=== PATIENT | male | born 1940 | race Caucasian/White ===

== ENCOUNTER → 2019-02-02 10:41 | Outpatient (CLI) | payer MEDICARE, OTHER ==
[~2019-02-02 10:41] MED LIST: ASPIRIN EC81 M1 PO; BETAPACE 120 M120 MG PO; ELIQUIS5 MG PO; HYDROCODON-ACE1 EAC7 PO; LIPITOR40 MG PO; LISINOPRIL20 MG PO; MAG-OXIDE400 MG PO; MULTI-DAY VITAM1 TAB PO; NORVASC5 MG PO; VITAMIN B COMPLEX PO
== END | disposition home or self-care (01) ==
LOC: D.NM 08:30
PROVIDERS: ATTEND Surgery
DX: K80.20 Calculus of gallbladder without cholecystitis without obstruction (principal)

== ENCOUNTER 2019-02-18 06:29 | Day surgery (SDC) | payer MEDICARE, OTHER ==
[~2019-02-18 06:29] MED LIST changes: -HYDROCODON-ACE1 EAC7 PO
[2019-02-18 06:58] LABS: BASOPHILS 0.6 % (0-2); EOSINOPHILS 2.3 % (0-7); HEMATOCRIT 41.9 % (42.0-54.0); HEMOGLOBIN 14.2 g/dL (13.5-17.5); IMMATURE GRANULOCYTES 0.2 % (0-5); LYMPHOCYTES 27.5 % (15-50); MCH 31.6 pg (26.0-34.0); MCHC 33.9 g/dL (31.0-37.0); MCV 93.1 fL (80.0-100.0); MEAN PLATELET VOLUME 10.4 fL (7.4-10.4); MONOCYTES 9.1 % (2-11); NEUTROPHILS 60.3 % (40-80); PLATELET COUNT 274 10x3/uL (130-400); RDW 14.6 % (11.5-14.5)
[2019-02-18 07:09] LABS: CALC OSMOLALITY 279 mosm/kg (275-300); CALCIUM 9.3 mg/dL (8.5-10.1); CHLORIDE - SERUM 106 mmol/L (98-107); CREATININE - SERUM 0.9 mg/dL (0.6-1.3); GLUCOSE 91 mg/dL (74-106); POTASSIUM - SERUM 4.1 mmol/L (3.5-5.1); SODIUM 140 mmol/L (136-145); UREA NITROGEN 15 mg/dL (7-18); eGFR NON AFRICAN AMERICAN 86 mL/min (90-120)
[2019-02-18 07:12] LABS: APTT 32.8 SECONDS (22.8-39.4); INR 1.25 (0.85-1.17); PROTIME 15.1 SECONDS (11.6-15.0)
[2019-02-18 09:02] VITALS: BP 119/68; BMI 28.8
[2019-02-18] MEDS ORDERED: HYDROCODON-ACE1 EAC7 PO (11:39)
--- NOTE | 2019-02-18 13:41 | NUR ---
1325 DR AT BEDSIDE TO TALK TO FAMILY 1330 INSTRUCTIONS GIVEN AND READ TO FAMILY
== END 2019-02-18 14:13 | disposition home or self-care (01) ==
LOC: D.OPS 06:29 → D.PAN 10:30 → D.OPS 10:55
PROVIDERS: Anesthesiology; ATTEND Surgery
DX: K80.10 Calculus of gallbladder with chronic cholecystitis without obstruction (principal); Z01.812 Encounter for preprocedural laboratory examination

== ENCOUNTER 2019-02-23 15:16 | Inpatient (IN) | payer MEDICARE, OTHER ==
[~2019-02-23] VITALS: Ht 175.3 cm; Wt 88.6 kg
[~2019-02-23 15:16] MED LIST changes: +HYDROCODON-ACE1 EAC7 PO
[2019-02-23 16:01] LABS: BASOPHILS 0.3 % (0-2); EOSINOPHILS 1.2 % (0-7); HEMATOCRIT 26.6 % (42.0-54.0); HEMOGLOBIN 9.2 g/dL (13.5-17.5); IMMATURE GRANULOCYTES 0.3 % (0-5); LYMPHOCYTES 21.7 % (15-50); MCH 32.1 pg (26.0-34.0); MCHC 34.6 g/dL (31.0-37.0); MCV 92.7 fL (80.0-100.0); MEAN PLATELET VOLUME 10.9 fL (7.4-10.4); MONOCYTES 13.8 % (2-11); NEUTROPHILS 62.7 % (40-80); RBC 2.87 10x6/uL (4.20-6.10); RDW 15.2 % (11.5-14.5); WBC 12.8 10x3/uL (4.8-10.8)
[2019-02-23 16:10] LABS: PLATELET COUNT 336 10x3/uL (130-400)
[2019-02-23 16:25] LABS: ANION GAP 15.6 mmol/L (8-16); CALCIUM 8.5 mg/dL (8.5-10.1); CARBON DIOXIDE 22.9 mmol/L (21.0-32.0); CREATININE - SERUM 2.5 mg/dL (0.6-1.3); POTASSIUM - SERUM 4.5 mmol/L (3.5-5.1); THYROID STIMULATING HORMONE 0.5 uIU/mL (0.36-3.74); TROPONIN-I 0.057 ng/mL (0.000-0.060)
--- NOTE | 2019-02-23 18:13 | NUR ---
RECEIVED REPORT FROM PORTER FREGOSO IN ER.
--- NOTE | 2019-02-23 18:32 | NUR ---
RECEIVED TO ROOM VIA STRETCHER.
--- NOTE | 2019-02-23 19:26 | NUR ---
RESUMING PATIENT CARE. PATIENT IS ALERT AND ORIENTED. RESTING COMFORTABLY IN BED. RESPIRATIONS ARE EVEN AND UNLABORED. DENIES NEEDS. NO S/S OF DISTRESS. NO C/O PAIN. CALL LIGHT WITHIN REACH. WILL CPOC.
--- NOTE | 2019-02-23 19:51 | NUR ---
PAGED FIREARMS MODEL MAKER TO RESTART PATIENT HOME MEDS. ORDERS GIVEN FOR 1/2 NS @ [address] العلي WOULD BE REVIEWING PATIENT HOME MEDS.
[2019-02-23 20:18] VITALS: BP 100/54
[2019-02-23 23:21] VITALS: BP 98/55; BMI 28.1
[2019-02-24 00:32] VITALS: BP 93/50
[2019-02-24 04:09] VITALS: BP 92/49
--- NOTE | 2019-02-24 07:14 | NUR ---
ROUNDING DONE WITH PATIENT BEING NPO AWAITING CARDIOLOGY CONSULT. ON HEART MONITOR SHOWING SB, HR 57. LEFT HAND PIV WITH 1/2 NS INFUSING AT 100 CC/HR. ON EP, AWAITING LAB RESULTS.
[2019-02-24 07:45] LABS: APTT 28.5 SECONDS (22.8-39.4); INR 1.46 (0.85-1.17); PROTIME 17.2 SECONDS (11.6-15.0)
[2019-02-24 07:47] LABS: ALBUMIN 2.4 g/dL (3.4-5.0); ANION GAP 11.6 mmol/L (8-16); BILIRUBIN - TOTAL 0.87 mg/dL (0.2-1.3); CALCIUM 8.2 mg/dL (8.5-10.1); CARBON DIOXIDE 24.8 mmol/L (21.0-32.0); MAGNESIUM - SERUM 1.9 mg/dL (1.8-2.4); POTASSIUM - SERUM 4.4 mmol/L (3.5-5.1); PROTEIN - SERUM 5.7 g/dL (6.4-8.2)
[2019-02-24 08:00] VITALS: BP 106/47
--- NOTE | 2019-02-24 08:15 | NUR ---
ASSSITED TO RESTROOM TO HAVE LIQUID STOOL.
[2019-02-24 08:44] LABS: BASOPHILS 0.3 % (0-2); EOSINOPHILS 1.4 % (0-7); HEMATOCRIT 25.6 % (42.0-54.0); HEMOGLOBIN 8.6 g/dL (13.5-17.5); IMMATURE GRANULOCYTES 0.3 % (0-5); LYMPHOCYTES 22.4 % (15-50); MCH 31.5 pg (26.0-34.0); MCHC 33.6 g/dL (31.0-37.0); MCV 93.8 fL (80.0-100.0); MEAN PLATELET VOLUME 10.7 fL (7.4-10.4); MONOCYTES 14.2 % (2-11); NEUTROPHILS 61.4 % (40-80); PLATELET COUNT 330 10x3/uL (130-400); RBC 2.73 10x6/uL (4.20-6.10); RDW 15.4 % (11.5-14.5); WBC 14.4 10x3/uL (4.8-10.8)
--- NOTE | 2019-02-24 10:15 | NUR ---
PATIENT HAS HAD THREE BOUTS OF DIARREHA THIS AM. NOTIFIED JESUS WILBURN APN. NEW ORDERS RECEIVED.
--- NOTE | 2019-02-24 10:20 | NUR ---
PATIENT IS INFORMED OF NEEDING STOOL AND URINE SAMPLE. STATES TO UNDERSTANDING TO NOTIFY NURSE.
--- NOTE | 2019-02-24 10:55 | NUR ---
PATIENT TO COMPLAIN OF LEFT HEEL BURNING, I DO NOT ANYTHING THAT CAN CAUSE THIS. PILLOW PLACED UNDER BILATERAL HEELS.
--- NOTE | 2019-02-24 11:26 | NUR ---
EKG DONE ORDERED AND SCANNED.
[2019-02-24 12:00] VITALS: BP 103/54
--- NOTE | 2019-02-24 12:24 | NUR ---
URINE AND STOOL SENT TO LAB ORDERED.
[2019-02-24 13:04] VITALS: BMI 28.6
--- NOTE | 2019-02-24 14:57 | NUR ---
ASSISTED PATIENT TO RESTROOM. VOIDS EASILY AND STILL WITH DIARREHA.
[2019-02-24 15:20] VITALS: Ht 175.3 cm; Wt 88.6 kg
--- NOTE | 2019-02-24 15:26 | NUR ---
I CALLED LAB AND SPOKE TO NICK AND ASKED THAT THE OCCULT BLOOD AND URINE CULTURE BE ADDED TO PREVIOUS SPECIMENS. SHE TELLS ME THAT SHE DOES NOT HAVE THE URINE. I TOLD HER THAT THEY WERE IN THE SAME BAG AND THAT NAPOLEON FROM LAB TOOK THE SPECIMENS FROM ME. SHE IS GOING TO LOOK AND CALL ME BACK IF UNABLE TO FIND THEM.
[2019-02-24 16:00] VITALS: BP 116/60
[2019-02-24 16:00] LABS: APPEARANCE CLEAR (CLEAR); BILIRUBIN NEGATIVE (NEGATIVE); COLOR YELLOW (YELLOW); GLUCOSE NEGATIVE (NEGATIVE); KETONE NEGATIVE (NEGATIVE); NITRITE NEGATIVE (NEGATIVE); PROTEIN NEGATIVE (NEGATIVE); SPECIFIC GRAVITY 1.015 (1.005-1.020); UROBILINOGEN NORMAL (NORMAL)
--- NOTE | 2019-02-24 16:07 | NUR ---
REFUSED SCD'S PATIENT IS UP AND DOWN TO RESTROOM FOR DIARREHA. LAB TO CALL AND TELL ME + FOR CDT. PLACED IN ENTERIC ISOLATION. AT BEDSIDE AND THIS IS EXPLAINED. SHE TELLS ME THAT HIS DAUGHTER IS A CARRIER OF THIS. TO RADIOLOGY VIA BED FOR CT.
--- NOTE | 2019-02-24 16:17 | NUR ---
UNABLE TO GIVE MEDS AT THIS TIME THEY ARE UNVERIFIED.
[2019-02-24 16:24] LABS: % SATURATION 9 % (15-55); IRON 23 ug/dl (35-150); TOTAL IRON BIND CAPACITY 232 ug/dl (260-445); UNSAT IRON BIND CAPACITY 209 ug/dl (150-375)
--- NOTE | 2019-02-24 16:34 | NUR ---
RETURNS FROM RADIOLOGY
--- NOTE | 2019-02-24 19:02 | NUR ---
BEDSIDE REPORT RECEIVED. NAME AND DATE PLACED ON BOARD. PT HAS 1/2 NS INFUSING AT 100 ORDERED TO LEFT HAND. 3L O2 NC. PT DENIES ANY NEEDS. NO S/S OF DISTRESS. PT BEDLOW AND CALL LIGHT IN REACH. WILL CPOC
--- NOTE | 2019-02-24 19:30 | NUR ---
PT NEEDING A UNIT OF BLOOD. BLOOD BANK CALLED AND STATED UNIT OF PRBC READY. CONSENT SIGNED AND DATED. PT VERBALIZED UNDERSTANDING AND DENIES ANY QUESTIONS OR CONCERNS. PT WILL CALL FOR ASSIST WHEN NEEDED. WILL CPOC
--- NOTE | 2019-02-24 20:15 | NUR ---
ONE UNIT OF PACKED RED BLOOD CELLS STARTED. PRE VITALS. ARE 105/54 HEART RATE 60 TEMP IS 99.3 PT IS AAO, ON 3L O2 NC. BLOOD INFUSING THROUGHT LEFT HAND 20G PIV. PT 1/2 NS STOPPED AT THIS TIME FOR BLOOD TRANSFUSION. PT WATCHING TV . ASKS ABOUT BATHROOM DURING BLOOD TRANSFUSION. PT UNDERSTANDS TO CALL FOR ASSIST. PT BEDLOW AND CALL LIGHT IN REACH. NO S/S OF DISTRESS. NO S/S OF REACTION. WILL CPOC
--- NOTE | 2019-02-24 20:28 | NUR ---
15 MINS SINCE START OF BLOOD. PT IS AAO. WATCHING TV. NO S/S OF REACTION. BP IS 97/61 HEART RATE 61 TEMP IS 99.1 PT VERBALIZED UNDERSTANDING OF S/S OF REACTION. PT WILL CALL FOR ASSIST WHEN NEEDED. NO S/S OF DISTRESS. WILL CPOC
[2019-02-24 21:16] VITALS: BP 97/58
--- NOTE | 2019-02-24 21:26 | NUR ---
PT UP TO BATHROOM. BACK INTO BED. COMPLAINS OF PAIN. NORCO GIVEN. PT PRBC STILL INFUSING. NO S/S OF DISTRESS. PT WILL CALL FOR ASSIST WHEN NEEDED. BEDLOW AND CALL LIGHT IN REACH. WILL CPOC
--- NOTE | 2019-02-24 23:18 | NUR ---
PT BLOOD IS COMPLETE. WILL START IRON INFUSION. PT DENIES ANY NEEDS. WILL CPOC
[2019-02-25 00:40] VITALS: BP 107/58
--- NOTE | 2019-02-25 01:10 | NUR ---
PT YELLING OUT INSTEAD OF USING CALL LIGHT, ASSISTED PT TO RESTROOM FOR A SMALL LOOSE BM. PT INSTRUCTED TO USE CALL LIGHT, PT VERBALIZED UNDERSTANDING. PT BACK INTO BED. FLAGYL STARTED ORDERED. PT BEDLOW AND CALL LIGHT IN REACH. WILL CPCO
--- NOTE | 2019-02-25 03:36 | NUR ---
PT USED CALL LIGHT TO LET NURSE KNOW NEED TO HAVE BM. PT HAD A LARGE LOOSE BM. ASSISTED BACK TO BED. PT DENIES ANY OTHER NEEDS. 3L O2 NC. 1/2 NC INFUSING ORDERED. PT WILL CALL FOR ASSIST WHEN NEEDED. WILL CPOC
[2019-02-25 05:16] LABS: ANION GAP 13.4 mmol/L (8-16); CALCIUM 8.2 mg/dL (8.5-10.1); CARBON DIOXIDE 23.9 mmol/L (21.0-32.0); CREATININE - SERUM 1.5 mg/dL (0.6-1.3); POTASSIUM - SERUM 4.3 mmol/L (3.5-5.1)
[2019-02-25 05:26] LABS: BASOPHILS 0.3 % (0-2); EOSINOPHILS 0.9 % (0-7); HEMATOCRIT 29.8 % (42.0-54.0); HEMOGLOBIN 10.1 g/dL (13.5-17.5); IMMATURE GRANULOCYTES 0.4 % (0-5); LYMPHOCYTES 17.5 % (15-50); MCH 31.3 pg (26.0-34.0); MCHC 33.9 g/dL (31.0-37.0); MCV 92.3 fL (80.0-100.0); MEAN PLATELET VOLUME 10.7 fL (7.4-10.4); MONOCYTES 15.1 % (2-11); NEUTROPHILS 65.8 % (40-80); PLATELET COUNT 358 10x3/uL (130-400); RBC 3.23 10x6/uL (4.20-6.10); RDW 15.6 % (11.5-14.5); WBC 15.5 10x3/uL (4.8-10.8)
[2019-02-25 05:38] VITALS: BP 128/65
--- NOTE | 2019-02-25 05:52 | NUR ---
PT CALLED TO HAVE ANOTHER BM. LOOSE. PT BACK INTO BED. 1/2 NS INFUSING ORDERED. BEDLOW AND CALL LIGHT IN REACH. MORNING PROTONIX GIVEN. PT WILL CALL FOR ASSIST WHEN NEEDED. WILL CPOC
[2019-02-25 08:00] VITALS: BP 125/73
--- NOTE | 2019-02-25 08:01 | NUR ---
RUNDING DONE WITH PATIENT BEING IN ENTERIC ISOLATION FOR C. DIFF. ON HEART MONITOR SHOWING SR W OCC PVC, HR 64. ON 3L PER NC. LEFT HAND PIV SEEN WITH 1/2 NS INFUSING AT 100 CC/HR. ON EP, K+ IS 4.3. LAP CHOL SITES ARE SEEN WITH STERI STRIPS.
[2019-02-25 11:00] VITALS: BP 115/76
--- NOTE | 2019-02-25 12:42 | NUR ---
ASSSITED TO RESTROOM AGAIN FOR DIARREHA. DENIES ANY FURTHER NEEDS.
--- NOTE | 2019-02-25 13:08 | NUR ---
DR CATALAN HERE TO SEE PATIENT.
--- NOTE | 2019-02-25 13:43 | NUR ---
THERAPHY IN ROOM FOR CONSULT. PATIENT REFUSES TO GET UP FOR HER.
--- NOTE | 2019-02-25 14:15 | NUR ---
REHAB PRESCREENING CONSULT RECIEVED AND THE CHART HAS BEEN REVIEWED. HE REFUSED TO BE EVALUATED BY PT AND HAS A SURGERY CONSULT PENDING FOR A PERITONEAL HEMATOMA. REHAB WILL FOLLOW HIM TO SEE IF HE IS WILLING TO PARTICIPATE IN THERAPY. FLORES Woodard RN CLINICAL LIAISON, REHAB
--- NOTE | 2019-02-25 15:15 | NUR ---
PATIENT TO REFUSE BATH AND LINEN CHANGE AT THIS TIME.
--- NOTE | 2019-02-25 17:31 | NUR ---
PATIENT DOES NOT WANT TO EAT SUPPER.
--- NOTE | 2019-02-25 19:10 | NUR ---
PT CALLING FOR RESTROOM. ASSISTED TO AND FROM RESTROOM. FLAGYL FINISHING INFUSING. PT HAS NO S/S OF DISTRESS. AAO. PLACED NAME AND DATE ON BOARD. PT WILL CALL FOR ASSIST WHEN NEEDED. WILL CPOC
--- NOTE | 2019-02-25 19:20 | NUR ---
PT CALLING AGAIN FOR RESTROOM. ASSIST TO AND FROM RESTROOM. PT HAD ANOTHER LOOSE LIQUID BM. PT STATES IT IS ONLY A LITTLE BETTER THAN YESTURDAY. BUT HAPPY THAT THERE IS SOME IMPROVEMENT. PROVIDED HAND WORKERS' COMPENSATION MEDIATOR. PT FLUIDS INFUSING ORDERED. BEDLOW AND CALL LIGHT IN REACH. PT WILL CALL FOR ASSIST WHEN NEEDED. WILL CPOC
--- NOTE | 2019-02-25 20:40 | NUR ---
IRON INFUSING AND NIGHT MEDICATIONS GIVEN. PT HAS NO S/S OF DISTRESS. PT WILL CALL FOR ASSIST WHEN NEEDED. WILL CPOC
[2019-02-25 21:27] VITALS: BP 122/68
[2019-02-25 23:26] VITALS: BP 119/66
--- NOTE | 2019-02-26 00:09 | NUR ---
PT HAD AN ACCIDENT IN THE BED BECAUSE NURSE WAS IN ANOTHER ROOM. PT UPSET REGARDING SITUATION. CLEANED PT AND ASSISTED TO RESTROOM WHERE PT HAD ANOTHER BM LOOSE AND LIQUID. PT NOW LAYING IN BED. PT DENIES ANY OTHER NEEDS. WILL CPCO
--- NOTE | 2019-02-26 02:06 | NUR ---
LR BOLUS GIVEN ORDERED.
--- NOTE | 2019-02-26 02:07 | NUR ---
PT CALLED FOR RESTROOM. NURSE ASSISTED PT TO RESTROOM AND PT PULLED EMERGENCY LIGHT WHEN DONE. ONCE PT GOT TO BED AND NURSE WAS ASSISTING LEGS INTO BED PT YELLED LOUDLY AND SAID OH NO I HAD AN ACCIDENT. ASSISTED PT BACK TO RESTROOM AND ASSISTED WITH CLEANING. PT THAN ASSISTED BACK TO BED. STARTED LR BOLUS NOW THAT IRON AND FLAGYL ARE COMPLETE. PT BACK INTO BED. 3L O2 NC. PT HAS NO S/S OF DISTRESS. PT WILL CALL FOR ASSIST WHEN NEEDED. WILL CPOC
--- NOTE | 2019-02-26 02:37 | NUR ---
PT CALLED FOR RESTROOM AGAIN. ASSISTED TO RESTROOM AND THEN BACK TO BED.
--- NOTE | 2019-02-26 04:16 | NUR ---
PT CALLED FOR RESTROOM. PT ASSISTED TO RESTROOM AND BACK TO BED. PT WILL CALL FOR ASSIST. WHEN NEEDED. WILL CPOC
--- NOTE | 2019-02-26 05:21 | NUR ---
PT VOMITED ON THE FLOOR AND HAD A BM AT THE SAME TIME. BM STILL LIQUID/LOOSE. VOMIT HAD REDNESS IN IT. ZOFRAN GIVEN FOR NAUSEA. PT SITTING ON SIDE OF BED. CLEANED PT AND BED. WILL CPOC
[2019-02-26 05:32] VITALS: BP 129/73
[2019-02-26 05:56] LABS: CALCIUM 8.6 mg/dL (8.5-10.1); CARBON DIOXIDE 25.1 mmol/L (21.0-32.0); CHLORIDE - SERUM 109 mmol/L (98-107); GLUCOSE 108 mg/dL (74-106); POTASSIUM - SERUM 4.9 mmol/L (3.5-5.1); SODIUM 144 mmol/L (136-145); eGFR NON AFRICAN AMERICAN 86 mL/min (90-120)
[2019-02-26 06:02] LABS: CALC OSMOLALITY 298 mosm/kg (275-300); CREATININE - SERUM 0.9 mg/dL (0.6-1.3); UREA NITROGEN 44 mg/dL (7-18)
[2019-02-26 06:23] LABS: BASOPHILS 0.2 % (0-2); EOSINOPHILS 0.5 % (0-7); HEMATOCRIT 34.2 % (42.0-54.0); HEMOGLOBIN 11.3 g/dL (13.5-17.5); IMMATURE GRANULOCYTES 0.5 % (0-5); LYMPHOCYTES 12.1 % (15-50); MCH 30.8 pg (26.0-34.0); MCV 93.2 fL (80.0-100.0); MEAN PLATELET VOLUME 11.1 fL (7.4-10.4); MONOCYTES 13.5 % (2-11); NEUTROPHILS 73.2 % (40-80); PLATELET COUNT 324 10x3/uL (130-400); RBC 3.67 10x6/uL (4.20-6.10); RDW 15.5 % (11.5-14.5); WBC 17.5 10x3/uL (4.8-10.8)
--- NOTE | 2019-02-26 08:15 | NUR ---
PT ARRIVED TO ME TRANSFER FROM ANOTHER ROOM ON FLOOR. PT IS A&O SITTING UP IN BED NAUSEATED AND FEELS LIKE HE IS GOING TO VOMIT. PT HAS PRN BRENDA I WILL PROVIDE HIM WITH. PT VOICED THANKS. PT DENIES WANTING TO EAT ANYTHING OR TAKE ANY OF HIS MEDICATIONS BECAUSE HE IS SCARED HE WILL VOMIT. WILL REVIEW ALL ORDERS AND CHART AND CPOC. CL IN REACH, BED IN LOWEST, SIDE RAILS X2 WILL CTM.
--- NOTE | 2019-02-26 08:59 | MORECARE ---
CASE MANAGEMENT DISCHARGE SUMMARY PATIENT: JESSA YOO UNIT: [id number] ADM DATE: 02/23/19 AGE: 79 : 38 SEX: M ROOM/BED: D.2101 AUTHOR: MK NOEL PHYSICIAN: REFERRING PHYSICIAN: OPHELIA العلي MD DATE OF SERVICE: 02/26/19 Discharge Plan Patient Name: [facility]SA [facility]OO [facility] [facility] 1940 Planned Disposition: Home Anticipated Discharge Date: 02/28/19 Discharge Date: Expected LOS: 5 Initial Reviewer: [email or web address] Initial Review Date: 02/23/2019 Generated: 02/26/19 9:59 am Patient Name: JESSA YOO Page [phone] at 0859 All edits/amendments must be made on the electronic document DICTATION DATE: 02/26/19858 GEMOLOGIST: CHRISTOPHER 02/26/1961 RPT#: [id number] DC DATE: STATUS: ADM IN [facility] [address] [place] [address] END OF REPORT
--- NOTE | 2019-02-26 09:13 | MORECARE ---
CASE MANAGEMENT DISCHARGE SUMMARY PATIENT: JESSA YOO UNIT: [id number] ADM DATE: 02/23/19 AGE: 79 : 38 SEX: M ROOM/BED: D.2101 AUTHOR: MK NOEL PHYSICIAN: REFERRING PHYSICIAN: OPHELIA العلي MD DATE OF SERVICE: 02/26/19 Discharge Plan Patient Name: [facility]ESSA YOO [facility] [facility] 1940 Planned Disposition: Home Anticipated Discharge Date: 02/28/19 Discharge Date: Expected LOS: 5 Initial Reviewer: [email or web address] Initial Review Date: 02/23/2019 Generated: 02/26/19 10:12 am Last DP export: 02/26/19 7:59 am Patient Name: JESSA YOO Page [phone] at 0913 All edits/amendments must be made on the electronic document DICTATION DATE: 02/26/19911 CONTRACT ADMINISTRATION MANAGER: CHRISTOPHER 02/26/19911 RPT#: [id number] DC DATE: STATUS: ADM IN [facility] [address] [place] [address] END OF REPORT
--- NOTE | 2019-02-26 09:20 | MORECARE ---
CASE MANAGEMENT DISCHARGE SUMMARY PATIENT: JESSA YOO UNIT: [id number] ADM DATE: 02/23/19 AGE: 79 : 38 SEX: M ROOM/BED: D.2101 AUTHOR: MK NOEL PHYSICIAN: REFERRING PHYSICIAN: OPHELIA العلي MD DATE OF SERVICE: 02/26/19 Discharge Plan Patient Name: JESSA YOO [facility] [facility] 1940 Planned Disposition: Home Anticipated Discharge Date: 02/28/19 Discharge Date: Expected LOS: 5 Initial Reviewer: [email or web address] Initial Review Date: 02/23/2019 Generated: 02/26/19 10:20 am DCPIA - Discharge Planning Initial Assessment Updated by [email or web address]: Irvin Diamond on 02/26/19 9:18 am * Is the patient Alert and Oriented? Yes * How many steps to enter\exit or inside your home? NONE * PCP DR. ELENA R[place] * Pharmacy [facility] * Preadmission Environment Home with Family * ADLs Independent * Equipment Rolling Walker * Other Equipment WALKER WITH 4 WHEELS, SEAT AND BRAKES PROVIDER - [facility] * List name and contact numbers for known caregivers / representatives who currently or will assist patient after discharge: SANTOS YOO, SPOUSE, * Verbal permission to speak to the caregivers and representatives has been obtained from the patient. N/A * Community resources currently utilized None * Please name any agencies selected above. NONE * Additional services required to return to the preadmission environment? No * Can the patient safely return to the preadmission environment? Yes * Has this patient been hospitalized within the prior 30 days at any hospital? No Last DP export: 02/26/19 8:12 am Patient Name: JESSA YOO Page 34886 at 0920 All edits/amendments must be made on the electronic document DICTATION DATE: 02/26/19918 PULPIT OPERATOR: CHRISTOPHER 02/26/19918 RPT#: [id number] DC DATE: STATUS: ADM IN [facility] [address] [place] [address] END OF REPORT
--- NOTE | 2019-02-26 09:28 | MORECARE ---
CASE MANAGEMENT DISCHARGE SUMMARY PATIENT: JESSA YOO UNIT: [id number] ADM DATE: 02/23/19 AGE: 79 : 38 SEX: M ROOM/BED: D.2108 AUTHOR: BERTDOC PHYSICIAN: REFERRING PHYSICIAN: OPHELIA العلي MD DATE OF SERVICE: 02/26/19 Discharge Plan Patient Name: JESSA YOO Facility: [facility]:[place] : 1940 Planned Disposition: Home Anticipated Discharge Date: 02/28/19 Discharge Date: Expected LOS: 5 Initial Reviewer: [email or web address] Initial Review Date: 02/23/2019 Generated: 02/26/19 10:28 am Comments DCP- Discharge Planning Updated by [email or web address]: Irvin Diamond on 02/26/19 8:[address] Patient Name: JESSA YOO Admission Status: ER Accout number: [id number] Admission Date: 02-23-2019 : 1940 Admission Diagnosis:BRADYCARDIA, UNSPECIFIED Attending: OPHELIA العلي Current LOS: 3 Anticipated DC Date: 02-28-2019 Planned Disposition: Home Primary Insurance: MEDICARE A & B Discharge Planning Comments: CM RECEIVED ORDER FOR INPATIENT REHAB PRESCREENING, MET WITH PT IN ROOM TO DISCUSS DISCHARGE PLANNING AND NEEDS. PT REPORTS LIVING AT HOME INDEPENDENTLY WITH SPOUSE. PT HAS ROLLATOR WALKER THAT HE DOES NOT USE FROM [employer] [facility]. PT HAS NO OUTSIDE SERVICES ASSISTING IN THE HOME. CM DISCUSSED AVAILABILITY OF HOME HEALTH, REHAB SERVICES AND MEDICAL EQUIPMENT. PT DENIES DISCHARGE NEEDS, REPORTS HIS WILL PICK HER UP FOR DISCHARGE HOME. CM DISCUSSED INPATIENT REHAB ORDER. PT REPORTS THAT IF THE HOSPITAL DOES IT'S JOB PROPERLY, HE WILL NOT NEED REHAB. CM ENCOURAGED PT TO PARTICIPATE WITH THERAPY SERVICES WHEN OFFERED, PT STATES HE GETS UP OUT OF BED 30 TIMES PER DAY WITH DIARREAH AND DOES NOT THINK HE WILL NEED ANY REHAB SERVICES. PT STATES TO GET HIM BETTER FIRST AND THEN TALK TO HIM. PT REPORTS NOT NEEDING REHAB SERVICES AT THIS TIME, PLANS TO GO HOME WITH SPOUSE, DENIES DISCHARGE NEEDS AT THIS TIME. CM TO FOLLOW AND ASSIST IF NEEDED. Parking Lot Laborer: Irvin Diamond DCPIA - Discharge Planning Initial Assessment Updated by [id number]: Irvin Diamond on 02/26/19 9:18 am * Is the patient Alert and Oriented? Yes * How many steps to enter\exit or inside your home? NONE * PCP DR. ELENA FRANKLIN * Pharmacy [facility] #[facility] * Preadmission Environment Home with Family * ADLs Independent * Equipment Rolling Walker * Other Equipment WALKER WITH 4 WHEELS, SEAT AND BRAKES PROVIDER - [facility] * List name and contact numbers for known caregivers / representatives who currently or will assist patient after discharge: SANTOS YOO, SPOUSE, * Verbal permission to speak to the caregivers and representatives has been obtained from the patient. N/A * Community resources currently utilized None * Please name any agencies selected above. NONE * Additional services required to return to the preadmission environment? No * Can the patient safely return to the preadmission environment? Yes * Has this patient been hospitalized within the prior 30 days at any hospital? No Last DP export: 02/26/19 8:20 am Patient Name: JESSA YOO Page 48897 at 0928 All edits/amendments must be made on the electronic document DICTATION DATE: 02/26/19927 MICROBIOLOGY TEACHER: CHRISTOPHER 02/26/19927 RPT#: [id number] DC DATE: STATUS: ADM IN [facility] [address] [place] [address] END OF REPORT
[2019-02-26 11:39] VITALS: BP 133/61
--- NOTE | 2019-02-26 14:16 | NUR ---
ASSISTED PT TO BR AND THEN BACK TO BED. PT IS STILL HAVING DIARRHEA VERY SMALL AMOUNTS. PT DENIED ANY FURTHER NAUSEA SINCE DOSE OF ZOFRAN GIVEN EARLIER. PT RESTING QUIETLY IN BED AT BEDSIDE. NO CURRENT NEEDS. WILL CTM.
[2019-02-26 16:05] VITALS: BP 116/72
--- NOTE | 2019-02-26 17:22 | NUR ---
PT NEEDS ADDITIONAL PIV ACCESS FOR NEW MEDICATION ORDER. 22 GUAGE PIV INSERTED TO R.FA X2 STICKS. DRSG CDI SWAB CAPS IN USE. WAITING ON PHARMACY TO SEND UP CLINIMIX AND THEN WILL ADMINISTER IT. PT VERBALIZED UNDERSTANDING. NO CURRENT NEEDS AT THIS TIME. WILL CTM.
[2019-02-26 20:00] VITALS: BP 123/61
--- NOTE | 2019-02-27 | NUR ---
A&O, IV OUT. CATHETER INTACT. 20G IV RESITED TO LEFT FOREARM, 1ST ATTEMPT. FLUSHES WITH EASE, PT TOLERATED WELL. WILL CONTINUE TO MONITOR.
--- NOTE | 2019-02-27 03:17 | NUR ---
I have reviewed this patient and I concur with the Shift Assessment completed by the Licensed Practical Nurse today this shift.
[2019-02-27 04:00] VITALS: BP 112/68
[2019-02-27 05:03] LABS: BASOPHILS 0.2 % (0-2); EOSINOPHILS 1.3 % (0-7); HEMATOCRIT 31.5 % (42.0-54.0); HEMOGLOBIN 10.1 g/dL (13.5-17.5); IMMATURE GRANULOCYTES 0.3 % (0-5); LYMPHOCYTES 15.3 % (15-50); MCH 30.6 pg (26.0-34.0); MCHC 32.1 g/dL (31.0-37.0); MCV 95.5 fL (80.0-100.0); MEAN PLATELET VOLUME 10.4 fL (7.4-10.4); MONOCYTES 13.2 % (2-11); NEUTROPHILS 69.7 % (40-80); PLATELET COUNT 359 10x3/uL (130-400); RDW 15.2 % (11.5-14.5); WBC 15.1 10x3/uL (4.8-10.8)
[2019-02-27 05:04] LABS: ANION GAP 12.7 mmol/L (8-16); CALCIUM 8.2 mg/dL (8.5-10.1); CARBON DIOXIDE 21.1 mmol/L (21.0-32.0); CREATININE - SERUM 1.1 mg/dL (0.6-1.3); POTASSIUM - SERUM 4.8 mmol/L (3.5-5.1)
--- NOTE | 2019-02-27 07:45 | NUR ---
AM ROUNDS COMPLETED. INTRODUCED MYSELF TO PT PRIMARY RN FOR TODAYS SHIFT. PT IS A&O SITTING UP IN BED RESTING QUIETLY. PT STATES HE DIDNT HAVE A GOOD NIGHT AND C/O FEELING JUST ILL AND FULL AND JUST NO ENERGY. DISCUSSED DISEASE PROCESS AND PLAN OF CARE WITH HIM. PT VERBALIZED UNDERSTANDING BUT IS JUST FEELING DOWN ON HIMSELF R/T FEELING SO SICK AND WEAK. NO FAMILY PRESENT AT THIS TIME. NO CURRENT NEEDS. WILL REVIEW CHART/LABS AND ANY NEW ORDERS AND CPOC. CL IN REACH, BED IN LOWEST, SIDE RAILS X2. WILL CTM.
[2019-02-27 07:56] VITALS: BP 112/62
[2019-02-27 11:37] VITALS: BP 112/69
--- NOTE | 2019-02-27 13:39 | NUR ---
PTS QUESTIONING EVERYTHING I DO WITH PT. I HAVE PROVIDED EXTENSIVE TEACHING AND SHE JUST DOESNT COMPREHEND. SHE STATES AND NEED TO "WORK" TOGETHER HOWEVER I EXPLAINED THE CONSULTS AND SITUATION AND THE WAY IT WORKS AND SHE IS JUST BEING VERY AGRESSIVE AND RUDE TOWARDS ME. SHE IS REFUSING ME TO HANG HIS NEW BOLUS THAT IS ORDERED AND STATES WE ARE CAUSING HIM TO SWELL AND MAKING HIM SICK. PTS L.HAND DOES APPEARS SLIGHTLY SWOLLEN HOWEVER I EXPLAINED TO HER THAT HE HAD A PIV INFILTRATE THERE LAST NIGHT. SHE IS DEMANDING TO WAIT AND TALK TO AND BEFORE I CAN HANG HIS MEDICATIONS. PAGED AND NOTIFIED HIM AND WILL CPOC.
--- NOTE | 2019-02-27 13:39 | NUR ---
Nutrition Follow Up: Chart reviewed. Pt is in isolation. Diet: Regular PO Intake: 36% meal avg BM: 02/26/19 (x 14) Labs reviewed Meds noted including Vanc, Flagyl, MV Rec continue current diet. Rec consider an appetite stimulant. Will continue to honor food preferences. RD following.
--- NOTE | 2019-02-27 14:46 | NUR ---
PTS ASKING ME WHERE IS . I EXPLAINED TO HEAR THAT I PAGED HIM AND MADE HIM AWARE OF THE REFUSAL OF FLUIDS AND THAT SHE WOULD LIKE TO TALK. SHE STATES "WELL YOU TOLD ME HE WAS ON THE FLOOR" I HAD MENTIONED TO HER THAT HE WAS EARLIER HOWEVER HE LEFT WHICH IS WHY I HAD TO PAGE HIM. SHE IS THINKING IM LYING TO HER AND SHE ROLLED HER EYES. WILL CTM.
--- NOTE | 2019-02-27 16:41 | CN ---
PATIENT NAME:JESSA YOO MEDICAL RECORD: [id number] : [birth year] LOCATION:D. D.2101 ADMIT DATE: 02/23/19 ACCOUNT: [id number] CONSULTING PHYSICIAN: ISRAEL BURK MD REFERRING PHYSICIAN: OPHELIA العلي MD DATE OF CONSULTATION: 02/24/2019 CARDIOLOGY CONSULTATION DIAGNOSES: 1. Dehydration. 2. Bradycardia. 3. Diarrhea. 4. Coronary artery disease. 5. Previous percutaneous transluminal coronary angioplasty stent. 6. Paroxysmal atrial fibrillation. 7. Bradycardia. 8. Eliquis anticoagulation. 9. Hypertension. 10. Hyperlipidemia. HISTORY OF PRESENT ILLNESS: Mr. Yoo presents with dehydration. He has a history of chronic diarrhea. He has poor oral intake for the past few days. He has had an exacerbation of his diarrhea, which led to the dehydration. He is quite bradycardic. He has a history of paroxysmal atrial fibrillation for which he is on sotalol 120 mg b.i.d[address] followed by Dr. Tinajero in [place]. His heart rate is in the 40s. It is sinus. At this time, he is on Eliquis anticoagulation. He also has a history of hypertension for which he is on amlodipine. His systolic blood pressure has been running in the 90s here. He does not have any chest pain or chest discomfort. PHYSICAL EXAMINATION: GENERAL APPEARANCE: Well-nourished, well-developed, appears stated age. Level of distress, comfortable. PSYCHIATRIC: Mental status, alert, normal affect. Orientation, oriented to time, place and person. EYES: Lids and conjunctiva, noninjected. No discharge, no pallor. ENT: Lips, teeth, gums, normal dentition. Oropharynx, no cyanosis, no pallor. NECK: Carotid arteries, bilateral normal upstroke, no bruits, no thrills. JUGULAR VEINS: No jugular venous pressure or distention. CERVICAL LYMPH NODES: Nontender, nonenlarged. THYROID: Not enlarged. Nontender. No nodules. LUNGS: Respiratory effort, unlabored. CHEST: Normal curvature. No thoracic deformity. No chest wall tenderness. Percussion, resonant. Auscultation, clear. No wheezes, no rales, no rhonchi. CARDIOVASCULAR: Precordial exam, nondisplaced. No heaves or pericardial thrills. Rate and rhythm, regular. Heart sounds, normal S1, normal S2. No S3, no gallop, no rub. Systolic murmur, not heard. Diastolic murmur, not heard. EXTREMITIES: No cyanosis, no edema. Peripheral pulses, full and equal in all extremities, except as noted. No bruits appreciated. ABDOMEN: Soft, nondistended. Normal aorta. No bruit. Nontender. No masses. Liver, nontender, no hepatomegaly. Spleen, nontender, no splenomegaly. MUSCULOSKELETAL: No joint tenderness. No joint swelling. No erythema. NEUROLOGICAL: Normal gait, normal strength, normal tone. SKIN: Warm and dry. CONSULT REPORT [id number] JESSA YOO OVERALL IMPRESSION: Bradycardia. At this time, withhold his sotalol secondary to the bradycardia. He is sinus, withhold the Eliquis at this time as well. I would possibly restart the sotalol at 80 mg b.i.d. if the bradycardia resolves as well he is with an acute renal insufficiency secondary to the dehydration and this could be the etiology of the bradycardia as well due to the fact the sotalol is renally excreted with hydration. Hopefully, the BUN and creatinine will improve and the bradycardia will also improve with the sotalol is renally excreted, would hold the amlodipine secondary to hypotension. At this point, he is not having any chest pain or chest discomfort. No other workup from the standpoint of ischemic heart disease is needed. TRANSINT:[id number] Voice Confirmation ID: [id number] DOCUMENT ID: [id number] ISRAEL BURK MD at 1641 CC: [id number] DICTATION DATE: 02/24/19 1121 PEST CONTROL SERVICE SALES AGENT: 02/24/19 1205 ADM IN [facility] [address] [place] [id number]
--- NOTE | 2019-02-27 18:22 | NUR ---
PT LYING BACK IN BED RESTING QUIETLY. STILL C/O BEING EXTREMELY FULL AND SWOLLEN. PT AGREED FOR IV IRON TRANSFUSION AND ANBX BUT REFUSES ANY EXTRA FLUIDS SO CLINIMIX CURRENTLY TURNED OFF AND 1/2 NS. PT HAS VERY POOR APPETITE AND INTAKE. WILL CONTINUE TO TRY AND ENCOURAGE HIM AND CPOC. CL IN REACH, BED IN LOWEST, SIDE RAILS X2. WILL CTM.
--- NOTE | 2019-02-27 19:10 | NUR ---
OBSERVED ISOLATION DUE TO CDIFF. PT AROUSES AND IS ALERT LCTA BUT DEMINISHWED AIR FLOW SKIN WARM AND DRY BOWEL SOUNDS X4 PT DENIES ANY NEEDS AT THIS TIME ..BED IS LOCKED IN LOW PPOSITION AND SRX2
[2019-02-27 20:00] VITALS: BP 125/65
[2019-02-28] VITALS (7 sets, daily range): BP systolic 115–138; BP diastolic 48–70
--- NOTE | 2019-02-28 03:30 | NUR ---
I have reviewed this patient and I concur with the Shift Assessment completed by the Licensed Practical Nurse today this shift.
[2019-02-28 04:51] LABS: BASOPHILS 0.3 % (0-2); EOSINOPHILS 1.6 % (0-7); HEMATOCRIT 33.7 % (42.0-54.0); HEMOGLOBIN 10.8 g/dL (13.5-17.5); IMMATURE GRANULOCYTES 0.4 % (0-5); LYMPHOCYTES 15.4 % (15-50); MCH 30.9 pg (26.0-34.0); MCV 96.6 fL (80.0-100.0); MEAN PLATELET VOLUME 10.4 fL (7.4-10.4); MONOCYTES 13.8 % (2-11); NEUTROPHILS 68.5 % (40-80); PLATELET COUNT 359 10x3/uL (130-400); RBC 3.49 10x6/uL (4.20-6.10); RDW 15.5 % (11.5-14.5); WBC 15.2 10x3/uL (4.8-10.8)
[2019-02-28 05:14] LABS: CALC OSMOLALITY 282 mosm/kg (275-300); CALCIUM 8.5 mg/dL (8.5-10.1); CARBON DIOXIDE 19.2 mmol/L (21.0-32.0); CHLORIDE - SERUM 110 mmol/L (98-107); GLUCOSE 85 mg/dL (74-106); POTASSIUM - SERUM 4.9 mmol/L (3.5-5.1); SODIUM 139 mmol/L (136-145); UREA NITROGEN 30 mg/dL (7-18); eGFR NON AFRICAN AMERICAN 76 mL/min (90-120)
--- NOTE | 2019-02-28 08:00 | NUR ---
PTS L.FA PIV IS REDDENED AND VERY TENDER TO THE TOUCH, SWOLLEN AND APPEARS INFILTRATED. D/C WITH CATHTER TIP FULLY INTACT. R.FA FLUSHES WELL WITHOUT ANY ISSUES. WILL CONTINUE USING IT AND NO NEED FOR SECOND ACCESS AT THIS TIME.
--- NOTE | 2019-02-28 10:40 | NUR ---
PT STILL HAS VERY POOR INTAKE BUT STATES ITS BECAUSE HE IS FEELING SO FULL. PT STATES HE WILL TRY FRUIT, PROVIDED PT WITH AN ORANGE AND HE ATE IT ENTIRELY. WILL CONTINUE TO ENCOURAGE INTAKE, AND ORDER PT A FRUIT TRAY FOR LUNCH. AT BEDSIDE VISITING. NO CURRENT PAIN OR NEEDS AT THIS TIME. WILL CTM.
--- NOTE | 2019-02-28 13:20 | NUR ---
PT HAS BEEN REFUSING THERAPY AND NOW THEY HAVE SIGNED OFF R/T REFUSAL. PT IS AMBULATORY WITH STAND BY ASSIST TO THE BR, HOWEVER THE IS COMPLAINING STATING WE ARENT TRYING TO HELP OR GIVING HIM THERAPY. EXPLAINED TO HER THE SITUATION AND SHE IS DEMANDING TO SPEAK TO THERAPY. RECONSULTED THEM AND THEY ARE IN ROOM NOW TO SEE WHAT HE IS WILLING TO DO.
--- NOTE | 2019-02-28 14:37 | NUR ---
PT FINALLY ABLE TO EAT A LITTLE BIT MORE. WAS ABLE TO EAT 75% OF HIS LUNCH FRUIT PLATE AND VOICED THANKS. PT DENIES ANY NAUSEA OR ISSUES. WILL CTM.
--- NOTE | 2019-02-28 19:23 | NUR ---
RECIEVED LAYING IN BED WITH EYES OPEN AND TV ON. ALERT AND ORIENTED X4. O2 @ 3.5 LITERS PER N/C. TELEMETRY IN PLACE. IV TO RIGHT FA SL.. RECIEVED LAP AWA ON 02/18/19. STERI STRIPS TO INCISIONS ON ABDOMEN INTACT. BRUISING TO ABDOMEN. REMAINS IN ISOLATION R/T + C-DIFF ANTIGEN. DENIES ANY LOOSE STOOLS. REMAINS ON ELECTROLYTE PROTOCOL. REPORTS POOR APPETITE D/T FEELING PRESSURE IN HIS ABDOMEN. STATES " I FEEL FULL". DENIES ANY NEEDS AT THIS TIME.
--- NOTE | 2019-03-01 01:41 | NUR ---
IV INFILTRATRATED TO RIGHT FA. D/C'D WITH TIP INTACT. RESTARTED 22GA WITH ATTEMPTS X1 TO LEFT WRIST. FLAGYL INFUSING AT THIS TIME.
[2019-03-01 03:55] VITALS: BP 121/67
[2019-03-01 04:52] LABS: BASOPHILS 0.3 % (0-2); EOSINOPHILS 1.7 % (0-7); HEMATOCRIT 33.4 % (42.0-54.0); HEMOGLOBIN 10.8 g/dL (13.5-17.5); IMMATURE GRANULOCYTES 0.4 % (0-5); LYMPHOCYTES 14.1 % (15-50); MCH 30.9 pg (26.0-34.0); MCHC 32.3 g/dL (31.0-37.0); MCV 95.7 fL (80.0-100.0); MEAN PLATELET VOLUME 10.8 fL (7.4-10.4); NEUTROPHILS 69.5 % (40-80); PLATELET COUNT 389 10x3/uL (130-400); RBC 3.49 10x6/uL (4.20-6.10); RDW 15.5 % (11.5-14.5); WBC 18.4 10x3/uL (4.8-10.8)
[2019-03-01 05:09] LABS: CALCIUM 8.6 mg/dL (8.5-10.1); CARBON DIOXIDE 22.7 mmol/L (21.0-32.0); CREATININE - SERUM 1.1 mg/dL (0.6-1.3); MAGNESIUM - SERUM 1.4 mg/dL (1.8-2.4); POTASSIUM - SERUM 4.7 mmol/L (3.5-5.1)
--- NOTE | 2019-03-01 07:40 | NUR ---
AM ROUNDS COMPLETED. INTRODUCED MYSELF TO PT PRIMARY RN FOR TODAYS SHIFT. PT IS A&O MOANING AND GROANING IN BED FEELING HORRIBLE HE STATES. PTS WBC IS TRENDING UP AGAIN, HE HAD STARTED VANCOMYCIN HOWEVER ONLY REC'D 1 DOSE SO FAR, BAG WAS HUNG LAST NIGHT BUT CLAMPED AND NEVER RAN THROUGH. WILL DISCUSS WITH PRIMARY ABOUT RETIMING THE DOSES. PT STATES HE IS JUST FEELING SO FULL AGAIN AND C/O SWELLING ALL OVER. HE KEEPS CONSISTING THAT HIS HANDS ARE SWOLLEN I DO SEE SWELLING BUT ITS ALL GENERALIZED NO PITTING NOTED. WILL RELAY TO PRIMARY AND SEE WHAT WE CAN DO FOR HIM. PTS LUNGS HAVE EXPIRATORY WHEEZES BUT NO CRACKLES OR WET SOUNDS NOTED. ABDOMEN SLIGHTLY DISTENDED BOWEL SOUNDS ACTIVE X4 AND PT STATES HE HAD A BM LAST NIGHT. NO FURTHER DIARRHEA. PT NOT WANTING TO EAT BREAKFAST HE STATES. NO FAMILY PRESENT. WILL CTM.
[2019-03-01 08:10] VITALS: BP 120/61
--- NOTE | 2019-03-01 10:11 | NUR ---
DISCONNECTED PT FROM PIV SO HE CAN TAKE A SHOWER. NATIONAL SALES CONSULTANT AT SIDE TO ASSIST. NO CURRENT NEEDS.
--- NOTE | 2019-03-01 13:04 | NUR ---
PT STATES HE IS FEELING SO MUCH BETTER NOW THAT HE GOT TO SHOWER. PT IS SITTING UP IN BED MOTIVATED TO EAT ORANGES AND MORE FRUIT. PT DENIES ANY CURRENT PAIN OR NEEDS. WILL CTM.
[2019-03-01 13:10] VITALS: BP 136/79
--- NOTE | 2019-03-01 14:24 | NUR ---
DR LANDAVERDE NOTIFIED OF CA 6.3 THAT WAS NOT ADDRESSED THIS AM. WILL MONITOR.
[2019-03-01 16:20] VITALS: BP 127/69
--- NOTE | 2019-03-01 16:55 | NUR ---
PT NEEDING A 18 OR [address] NEW [address] TEST ORDERS. INSERTED A 20 GUAGE TO R.AC PIV X1 STICK. DATED, TIMED AND INITIALED. CALLED CT AND LET THEM KNOW ITS IN. WAITING ON THEM TO COME DO. NO CURRENT NEEDS. WILL CTM.
--- NOTE | 2019-03-01 17:07 | NUR ---
PT LEAVING FOR CT NOW. NO CURRENT NEEDS.
--- NOTE | 2019-03-01 18:08 | NUR ---
PT BACK FROM CT AND VERY TIRED. RECONNECTED PT TO HIS IVPB FLAGYL TO FINISH TRANSFUSING. PT DENIES WANTING TO EAT ANYTHING TONIGHT FOR DINNER. NOW LEAVING. PT STATES HE IS COMFORTABLE AND WOULD LIKE TO REST. CL IN REACH, BED IN LOWEST, SIDE RAILS X2 AND BUILT IN BED ALARM ON. WILL CT.M
--- NOTE | 2019-03-01 19:34 | NUR ---
RECIEVED LAYING IN BED WITH EYES OPEN AND TV ON. ALERT AND ORIENTED X4. O2 @ 3.5 LITERS PER N/C. RESP EVEN AND UNLABORED. TELEMETRY IN PLACE. IV TO LEFT WRIST AT KVO. REMAQINS IN ENTERIC ISOLATION D/T + C-DIFF ANTIGEN. STERI STRIP ON ABD . ASSITED UP TO B/R. AMBULTES WITH SBA ONLY. DENIES ANY OTHER NEEDS.
[2019-03-02 00:15] VITALS: BP 119/63
[2019-03-02 06:10] VITALS: BP 125/68
--- NOTE | 2019-03-02 07:47 | NUR ---
PATIENT IS RESTING QUIETLY AT THIS TIME. DENIES ANY NEEDS AT THIS TIME.
[2019-03-02 08:47] VITALS: BP 142/69
[2019-03-02 11:45] LABS: BASOPHILS 0.4 % (0-2); EOSINOPHILS 0.7 % (0-7); HEMATOCRIT 36.3 % (42.0-54.0); HEMOGLOBIN 11.6 g/dL (13.5-17.5); IMMATURE GRANULOCYTES 0.3 % (0-5); LYMPHOCYTES 12.5 % (15-50); MCH 31.2 pg (26.0-34.0); MCV 97.6 fL (80.0-100.0); MEAN PLATELET VOLUME 10.9 fL (7.4-10.4); MONOCYTES 12.4 % (2-11); NEUTROPHILS 73.7 % (40-80); PLATELET COUNT 356 10x3/uL (130-400); RBC 3.72 10x6/uL (4.20-6.10); RDW 15.7 % (11.5-14.5); WBC 15.8 10x3/uL (4.8-10.8)
[2019-03-02 11:48] LABS: CALCIUM 8.6 mg/dL (8.5-10.1); CARBON DIOXIDE 24.4 mmol/L (21.0-32.0); CREATININE - SERUM 1.1 mg/dL (0.6-1.3); MAGNESIUM - SERUM 1.2 mg/dL (1.8-2.4); POTASSIUM - SERUM 4.4 mmol/L (3.5-5.1)
--- NOTE | 2019-03-02 12:31 | NUR ---
I have reviewed this patient and I concur with the Shift Assessment completed by the Licensed Practical Nurse today this shift.
[2019-03-02 13:02] VITALS: BP 127/61
--- NOTE | 2019-03-02 13:53 | NUR ---
PATIENT IS ALERT AND AWAKE. HE ORDERED A SPECIAL EXTRA PIECE OF PIE. HE REPORTS NO OTHER NEEDS AT THIS TIME. HE HAS BEEN GETTING UP WITH ASSIST TO THE BATHROOM. IS NOT AT PATIENTS BEDSIDE AT THIS TIME.
[2019-03-02 15:50] VITALS: BP 132/77
--- NOTE | 2019-03-02 18:32 | NUR ---
PATIENT IS RESTING QUIETLY AT THIS TIME. DENIES ANY NEEDS AT THIS TMIE.
--- NOTE | 2019-03-02 19:24 | NUR ---
EVENING ROUNDS COMPLETED. REPORT RECEIVED. PT SITTING UP IN BED WITH EYES CLOSED, RR EVEN AND UNLABORED. BED IN LOW POSITION. 56 SINUS HERNÁN ON TELEMETRY. NO S/S OF DISTRESS NOTED. CALL LIGHT IN REACH. WILL CTM. CPOC.
[2019-03-02 20:00] VITALS: BP 132/82
[2019-03-03] VITALS: BP 130/78
[2019-03-03 04:00] VITALS: BP 141/74
--- NOTE | 2019-03-03 05:01 | NUR ---
I have reviewed this patient and I concur with the Shift Assessment completed by the Licensed Practical Nurse today this shift.
--- NOTE | 2019-03-03 07:40 | NUR ---
MORNING ROUNDS MADE. PT LAYING IN BED RESTING. DENIES PAIN AT THIS TIME. A/O X 4. NORMAL SINUS ON TELE. L WRIST IV WITH NS @ KVO, R AC IV SL, DRSG C/D/I, NO REDNESS OR EDEMA NOTED. 2.5L 02 VIA NC. BREATHING EVEN AND UNLABORED. PEDAL PULSES PALPABLE. NO FURTHER CONCENRS AT THIS TIME. FALL PRECAUTIONS IN PLACE. BED LOWERED AND LOCKED. NON SKID SOCKS ON. YELLOW GOWN ON. SR UP X 2. CL IN REACH. WILL CTM.
--- NOTE | 2019-03-03 08:13 | NUR ---
PT TOOK MEDS WITHOUT DIFFICULTY. VITALS STABLE. ASSISTED PT UP IN BED TO EAT BREAKFAST. NO FURTHER CONCERNS AT THIS TIME. FALL PRECAUTIONS IN PLACE. WILL CTM.
[2019-03-03 08:35] VITALS: BP 146/78
[2019-03-03 09:52] LABS: BASOPHILS 0.3 % (0-2); EOSINOPHILS 0.9 % (0-7); HEMATOCRIT 36.2 % (42.0-54.0); HEMOGLOBIN 11.6 g/dL (13.5-17.5); IMMATURE GRANULOCYTES 0.5 % (0-5); LYMPHOCYTES 11.5 % (15-50); MCH 31.1 pg (26.0-34.0); MCV 97.1 fL (80.0-100.0); MEAN PLATELET VOLUME 10.5 fL (7.4-10.4); MONOCYTES 12.5 % (2-11); NEUTROPHILS 74.3 % (40-80); PLATELET COUNT 387 10x3/uL (130-400); RBC 3.73 10x6/uL (4.20-6.10); RDW 15.7 % (11.5-14.5); WBC 17.4 10x3/uL (4.8-10.8)
[2019-03-03 10:00] LABS: CALC OSMOLALITY 281 mosm/kg (275-300); CALCIUM 8.8 mg/dL (8.5-10.1); CARBON DIOXIDE 25.9 mmol/L (21.0-32.0); CHLORIDE - SERUM 110 mmol/L (98-107); GLUCOSE 116 mg/dL (74-106); POTASSIUM - SERUM 4.3 mmol/L (3.5-5.1); SODIUM 139 mmol/L (136-145); UREA NITROGEN 21 mg/dL (7-18); eGFR NON AFRICAN AMERICAN 76 mL/min (90-120)
[2019-03-03 11:33] VITALS: BP 137/69
--- NOTE | 2019-03-03 12:26 | CN ---
PATIENT NAME:JESSA YOO MEDICAL RECORD: [id number] : 36 LOCATION:D. D.2101 ADMIT DATE: 02/23/19 ACCOUNT: [id number] CONSULTING PHYSICIAN: SKY BONILLA MD REFERRING PHYSICIAN: OPHELIA العلي MD DATE OF CONSULTATION: 02/24/2019 HISTORY OF PRESENT ILLNESS: An 79-year-old gentleman with a known history of atrial fibrillation, status post cardioversion, status post embolic CVA, recently had a cholecystectomy. He has been able tolerate p.o. intake, admitted with a markedly elevated BUN and creatinine from baseline creatinine of 2.5, has been bradycardic. Some of this is decreased clearance with sotalol secondary to intravascular volume depletion. We are asked to see him concerning cardiovascular status. PAST MEDICAL HISTORY: Includes; 1. History of recent cholecystectomy. 2. Cerebrovascular disease status post CVA. 3. Atrial fibrillation. 4. Hypertension. 5. Hyperlipidemia. ALLERGIES: None known. MEDICATIONS: Typically include amlodipine 5 mg p.o. daily, sotalol 120 b.i.d., atorvastatin 40 daily, Eliquis 5 b.i.d., aspirin 81 every day, lisinopril 20 every day. SOCIAL HISTORY: Nonsmoker, nondrinker. He takes care of all ADLs. Does try to walk on a regular basis, none recently. REVIEW OF SYSTEMS: The patient reports easy bruising but reports no swollen glands. The patient reports no fever, no night sweats, no significant weight gain, no significant weight loss. No significant exercise tolerance. The patient reports no dry eyes, no irritation, no vision change. Patient reports no difficulty hearing and no ear pain. Patient reports no frequent nose bleeds or nose and sinus problems. Patient reports on arm pain on exertion. No shortness of breath while lying down. No history of heart murmur. Patient reports no cough, no wheezing or coughing up blood. Patient reports no abdominal pain, no vomiting. Normal appetite. No diarrhea and not vomiting blood. No nausea and no constipation. Patient reports no incontinence. No difficulty urinating. No hematuria. No increased frequency. Patient reports no muscle aches. No weakness, no arthralgias, no back pain. No swelling of the extremities. Patient reports no abnormal mole, no jaundice, no rashes. Reports no loss of consciousness. No weakness and no numbness. No seizures, dizziness, or headaches. The patient reports no depression, no sleep disturbance, feeling safe in a relationship and no alcohol abuse. Patient reports on fatigue. Reports no runny nose or sinus pressure. No itching, no hives, and no frequent sneezing. PHYSICAL EXAMINATION: GENERAL: Well-developed, well-nourished gentleman, appears younger than stated age. VITAL SIGNS: Pulse 54 and regular, blood pressure 92/49. HEENT: Normocephalic, atraumatic. CONSULT REPORT [id number] JESSA YOO NECK: No bruits noted. HEART: Regular. LUNGS: Lung caceres has good air excursion. ABDOMEN: Soft, nontender. EXTREMITIES: Pulses are 2+. No edema. DIAGNOSTIC DATA: EKG shows sinus lupillo, LVH. IMPRESSION: Bradycardia, hypotension, obviously dehydration, some contribution of medications with decreased clearance due to increased creatinine. I will hold medications, hydration as you are doing. Further recommendations based on clinical course. TRANSINT:[id number] Voice Confirmation ID: [id number] DOCUMENT ID: [id number] SKY BONILLA MD at 1226 CC: [id number] DICTATION DATE: 02/24/19 0752 CARDIOGRAPH OPERATOR: 02/24/19 0834 ADM IN [place] [id number] [place] [id number]
--- NOTE | 2019-03-03 12:26 | EC ---
PATIENT:JESSA YOO DATE OF SERVICE: 02/23/19 SEX: M MEDICAL RECORD: [id number] DATE OF : 36 LOCATION:D.M2 D.210 AGE OF PATIENT: 79 ADMISSION DATE: 02/23/19 REFERRING PHYSICIAN: INTERPRETING PHYSICIAN: SKY BONILLA MD ECHOCARDIOGRAM REPORT ECHO CHARGES 4 ECHO COMPLETE Date: 02/24/19 CLINICAL DIAGNOSIS: AFIB ECHOCARDIOGRAPHIC MEASUREMENTS (adult normal given) AC root (d.<3.7cm) 3.0 cm LV Septum d (<1.2 cm> 1.3 cm Valve Excursion 1.3 cm LV Septum (systole) 1.7 cm Left Atria (s.<4.0cm> 4.0 cm LVPW d(<1.2cm) 1.3 cm RV (d.<2.3cm) 2.9 cm LVPW (sytole) 1.9 cm LV diastole(<5.6CM) 4.8 cm MV E-F(>70mm/sec) cm LV systole 3.5 cm LVOT Diameter 2.0 cm MV exc.(>10mm) cm Est.ejection fraction (50-75%) % DOPPLER: LVIT cm/sec A 69 cm/sec E 101 cm/sec LA cm/sec RVSP 31.0 mmHg LVOT 155 cm/sec AOP1/2T m/s Asc. Ao 270 cm/sec RVOT 77 cm/sec RA cm/sec PA 110 cm/sec AV Gradient Peak 29.1 mmHg AV Mean 15.3 mmHg AV Area 2.1 cm MV Gradient Peak 5.1 mmHg MV Mean 1.8 mmHg MV Area cm COMMENTS: Dentistry Professor: Argenis BENAVIDEZ Chimney Repairer: 3 Dr. Mercado TAPE# PACS Pericardial Effusion N DATE OF SERVICE: Adequate 2D, color flow, spectral Doppler, and M-Mode LVH is present. LV internal dimensions are normal. Wall motion is normal. EF is greater than or equal to 55%. Aortic valve is tricuspid. No evidence of stenosis by Doppler interrogation. Left atrium is normal. Mitral valve shows no prolapse. Mild MR. Right-sided chambers grossly normal. Trace TR. TRANSINT:[id number] Voice Confirmation ID: [id number] DOCUMENT ID: [id number] ECHOCARDIOGRAM REPORT [id number] JESSA YOO SKY BONILLA MD at 1226 CC: [id number] DICTATION DATE: 02/25/19 1341 DIESEL ENGINE ERECTOR: 02/25/19 1447 ADM IN [place] [id number] [place] [id number]
[2019-03-03 15:59] VITALS: BP 141/69
--- NOTE | 2019-03-03 16:27 | NUR ---
I have reviewed this patient and I concur with the Shift Assessment completed by the Licensed Practical Nurse today this shift.
--- NOTE | 2019-03-03 19:31 | NUR ---
PATIENT LAYING IN BED. NO COMPLAINTS AT THIS TIME. NO DISTRESS NOTED.
[2019-03-03 20:00] VITALS: BP 158/75
[2019-03-04] VITALS: BP 146/70
--- NOTE | 2019-03-04 00:19 | NUR ---
PATIENT LAYING IN BED. EYES CLOSED, CHEST RISING AND FALLING. NO DISTRESS NOTED.
--- NOTE | 2019-03-04 02:39 | NUR ---
PATIENT LAYING IN BED. EYES CLOSED, CHEST RISING AND FALLING. NO DISTRESS NOTED.
--- NOTE | 2019-03-04 03:49 | NUR ---
I have reviewed this patient and I concur with the Shift Assessment completed by the Licensed Practical Nurse today this shift.
[2019-03-04 04:00] VITALS: BP 147/72
[2019-03-04 05:51] LABS: BASOPHILS 0.4 % (0-2); EOSINOPHILS 0.9 % (0-7); HEMATOCRIT 35.8 % (42.0-54.0); HEMOGLOBIN 11.6 g/dL (13.5-17.5); IMMATURE GRANULOCYTES 0.3 % (0-5); LYMPHOCYTES 13.8 % (15-50); MCH 31.2 pg (26.0-34.0); MCHC 32.4 g/dL (31.0-37.0); MCV 96.2 fL (80.0-100.0); MEAN PLATELET VOLUME 10.7 fL (7.4-10.4); MONOCYTES 13.8 % (2-11); NEUTROPHILS 70.8 % (40-80); PLATELET COUNT 400 10x3/uL (130-400); RBC 3.72 10x6/uL (4.20-6.10); RDW 15.9 % (11.5-14.5); WBC 16.9 10x3/uL (4.8-10.8)
[2019-03-04 06:04] LABS: ALBUMIN 2.3 g/dL (3.4-5.0); ALKALINE PHOSPHATASE 141 U/L (46-116); ALT (SGPT) 22 U/L (10-68); BILIRUBIN - TOTAL 0.65 mg/dL (0.2-1.3); CALC OSMOLALITY 282 mosm/kg (275-300); CALCIUM 8.6 mg/dL (8.5-10.1); CHLORIDE - SERUM 110 mmol/L (98-107); CREATININE - SERUM 0.9 mg/dL (0.6-1.3); GLUCOSE 95 mg/dL (74-106); POTASSIUM - SERUM 3.9 mmol/L (3.5-5.1); PROTEIN - SERUM 5.5 g/dL (6.4-8.2); SODIUM 141 mmol/L (136-145); UREA NITROGEN 19 mg/dL (7-18); eGFR NON AFRICAN AMERICAN 86 mL/min (90-120)
--- NOTE | 2019-03-04 07:41 | NUR ---
PT CALL LIGHT ON AND PT YELLING FROM INSIDE ROOM. UPON ENTERING ROOM PT SITTING UP ON SIDE OF BED. PT STATED "I HAVE BEEN YELLING FOR 45 MINUTES" I APOLOGIZED TO PT AND ASSISTED PT TO BATHROOM. DENIES PAIN AT THIS TIME. A/O X 4. UP WITH ASSISTANCE X 1. C/O DIARRHEA. AFTER ASSISTING BACK TO BED. PT SOB. O2 @ 2.5L VIA NC. NO FURTHER COMPLAINTS AT THIS TIME. FALL PRECAUTIONS IN PLACE. WILL CTM.
[2019-03-04 09:06] VITALS: BP 152/78
--- NOTE | 2019-03-04 09:43 | NUR ---
VITALS STABLE. PT TOOK MEDS WITHOUT DIFFICULTY. NO FURTHER CONCERNS AT THIS TIME. FALL PRECAUTIONS IN PLACE. BED LOWERED AND LOCKED. CL IN REACH. WILL CTM.
--- NOTE | 2019-03-04 10:23 | NUR ---
I have reviewed this patient and I concur with the Shift Assessment completed by the Licensed Practical Nurse today this shift.
[2019-03-04 12:20] VITALS: BP 147/82
--- NOTE | 2019-03-04 13:55 | NUR ---
SAVANAH ALDRIDGE APN TO ASK ME TO CONVERT IV TO SALINE LOCK, DONE. SHE ASKED THAT IT BE RE-SITED BY PRIMARY NURSE WHEN AVAILABLE.
--- NOTE | 2019-03-04 14:17 | NUR ---
IV IN L WRIST INFILTRATED, IV REMOVED, TIP INTACT. IV TO R AC, FLUSHED, PATENT, NO REDNESS OR EDEMA NOTED. SALINE LOCKED.
[2019-03-04 16:09] VITALS: BP 149/76
[2019-03-04 17:23] LABS: APPEARANCE CLEAR (CLEAR); BILIRUBIN NEGATIVE (NEGATIVE); COLOR YELLOW (YELLOW); GLUCOSE NEGATIVE (NEGATIVE); KETONE NEGATIVE (NEGATIVE); NITRITE NEGATIVE (NEGATIVE); PROTEIN TRACE mg/dL (NEGATIVE); SPECIFIC GRAVITY 1.015 (1.005-1.020); UROBILINOGEN NORMAL (NORMAL)
[2019-03-04 17:24] LABS: BACTERIA FEW /hpf (NONE SEEN); WHITE CELLS - URINE OCC /hpf (0-5)
--- NOTE | 2019-03-04 19:38 | NUR ---
PATIENT LAYING IN BED, EYES CLOSED, CHEST RISING AND FALLING. NO DISTRESS NOTED.
[2019-03-04 20:00] VITALS: BP 151/87
[2019-03-05 00:03] VITALS: BP 136/70
--- NOTE | 2019-03-05 00:13 | NUR ---
PATIENT LAYING IN BED. EYES CLOSED, CHEST RISING AND FALLING. NO DISTRESS NOTED.
--- NOTE | 2019-03-05 02:01 | NUR ---
I have reviewed this patient and I concur with the Shift Assessment completed by the Licensed Practical Nurse today this shift.
[2019-03-05 04:00] VITALS: BP 144/81
--- NOTE | 2019-03-05 06:00 | NUR ---
PATIENT LAYING IN BED. NO COMPLAINTS AT THIS TIME. NO DISTRESS NOTED.
[2019-03-05 06:24] LABS: BASOPHILS 0.4 % (0-2); EOSINOPHILS 1.5 % (0-7); HEMATOCRIT 35.6 % (42.0-54.0); HEMOGLOBIN 11.5 g/dL (13.5-17.5); IMMATURE GRANULOCYTES 0.4 % (0-5); MCH 31.3 pg (26.0-34.0); MCHC 32.3 g/dL (31.0-37.0); MCV 96.7 fL (80.0-100.0); MEAN PLATELET VOLUME 10.6 fL (7.4-10.4); MONOCYTES 16.8 % (2-11); NEUTROPHILS 66.9 % (40-80); PLATELET COUNT 371 10x3/uL (130-400); RBC 3.68 10x6/uL (4.20-6.10); RDW 16.2 % (11.5-14.5); WBC 15.5 10x3/uL (4.8-10.8)
[2019-03-05 06:36] LABS: ALBUMIN 2.3 g/dL (3.4-5.0); ALKALINE PHOSPHATASE 145 U/L (46-116); ALT (SGPT) 21 U/L (10-68); BILIRUBIN - TOTAL 0.65 mg/dL (0.2-1.3); CALC OSMOLALITY 284 mosm/kg (275-300); CALCIUM 8.7 mg/dL (8.5-10.1); CHLORIDE - SERUM 109 mmol/L (98-107); CREATININE - SERUM 0.9 mg/dL (0.6-1.3); GLUCOSE 115 mg/dL (74-106); POTASSIUM - SERUM 3.9 mmol/L (3.5-5.1); PROTEIN - SERUM 5.5 g/dL (6.4-8.2); SODIUM 142 mmol/L (136-145); UREA NITROGEN 15 mg/dL (7-18); eGFR NON AFRICAN AMERICAN 86 mL/min (90-120)
--- NOTE | 2019-03-05 09:11 | NUR ---
Nutrition follow-up: Diet: REgular PO Intake 100% of most meals Labs reviewed Wt: 211# PO intake good at this time RDN following.
--- NOTE | 2019-03-05 09:13 | NUR ---
MORNING ROUNDS MADE. PT SITTING UP ON SIDE OF BED. DENIES PAIN AT THIS TIME. A/O X 4. UP WITH ASSISTANCE X 1. PT [place]. NORMAL SINUS ON TELE. R AC IV SL, PATENT, DRSG C/D/I, NO REDNESS OR EDEMA NOTED. 2.5L O2 VIA NC. BREATHING EVEN AND UNLABORED. NON PRODUCTIVE COUGH NOTED. BLE GENERALIZED EDEMA NOTED. VITALS STABLE. TOOK MEDS WITHOUT DIFFICULTY. FALL PRECAUTIONS IN PLACE. YELLOW GOWN ON, NON SKID SOCKS ON, BED LOWERED AND LOCKED. CL IN REACH. WILL CTM.
--- NOTE | 2019-03-05 09:27 | NUR ---
I have reviewed this patient and I concur with the Shift Assessment completed by the Licensed Practical Nurse today this shift.
[2019-03-05 09:37] VITALS: BP 146/80
[2019-03-05 12:25] VITALS: BP 128/69
--- NOTE | 2019-03-05 13:32 | NUR ---
Rehab Note- Received another [facility] acute rehab prescreen order. The patient had previously had a referral and refused inpatient acute rehab. The patient is now in agreeance and wants to come to inpatient acute rehab prior to being discharged home. Will continue to follow at this time. Patient was SOB when visiting w/ him, stated he was very tired d/t had been up walking with therapy. Thank you for this referral! Wilma Braxton RN Clinical Liaison, [facility] Rehab
--- NOTE | 2019-03-05 14:39 | MORECARE ---
CASE MANAGEMENT DISCHARGE SUMMARY PATIENT: JESSA YOO UNIT: [id number] ADM DATE: 02/23/19 AGE: 79 : 38 SEX: M ROOM/BED: D.2101 AUTHOR: MK NOEL PHYSICIAN: REFERRING PHYSICIAN: OPHELIA العلي MD DATE OF SERVICE: 03/05/19 Discharge Plan Patient Name: [facility]ESSA YOO [facility] [facility] 1940 Planned Disposition: Inpatient Rehab Anticipated Discharge Date: 03/06/19 Discharge Date: Expected LOS: 11 Initial Reviewer: [email or web address] Initial Review Date: 02/23/2019 Generated: 03/05/19 3:38 pm Comments DCP- Discharge Planning Updated by [email or web address]: Irvin Diamond on 03/05/19 1:[address] Patient Name: JESSA YOO Encounter No: [id number] : 1940 Primary Insurance: MEDICARE A & B Anticipated DC Date: 03-06-2019 Planned Disposition: Inpatient Rehab External Planned Provider: [facility] INPATIENT REHAB DCP follow-up note: CM SPOKE TO JANELLE OF INPATIENT REHAB, THEY PLAN TO MEET WITH PT TO DISCUSS REHAB PLACEMENT PRIOR TO GOING HOME. CM MET WITH PT IN ROOM WHO TALKED TO SOMEONE ABOUT REHAB TODAY. PT IS IN AGREEMENT WITH DISCHARGE TO INPATIENT REHAB. CM WAITING [facility] ADMISSION DETERMINATION FROM [facility] INPATIENT REHAB. Irvin Diamond DCP- Discharge Planning Updated by [email or web address]: Irvin Diamond on 02/26/19 8:[address] Patient Name: JESSA YOO Admission Status: ER Accout number: [id number] Admission Date: 02-23-2019 : 1940 Admission Diagnosis:BRADYCARDIA, UNSPECIFIED Attending: OPHELIA العلي Current LOS: 3 Anticipated DC Date: 02-28-2019 Planned Disposition: Home Primary Insurance: MEDICARE A & B Discharge Planning Comments: CM RECEIVED ORDER FOR INPATIENT REHAB PRESCREENING, MET WITH PT IN ROOM TO DISCUSS DISCHARGE PLANNING AND NEEDS. PT REPORTS LIVING AT HOME INDEPENDENTLY WITH SPOUSE. PT HAS ROLLATOR WALKER THAT HE DOES NOT USE FROM [employer]. PT HAS NO OUTSIDE SERVICES ASSISTING IN THE HOME. CM DISCUSSED AVAILABILITY OF HOME HEALTH, REHAB SERVICES AND MEDICAL EQUIPMENT. PT DENIES DISCHARGE NEEDS, REPORTS HIS WILL PICK HER UP FOR DISCHARGE HOME. CM DISCUSSED INPATIENT REHAB ORDER. PT REPORTS THAT IF THE HOSPITAL DOES IT'S JOB PROPERLY, HE WILL NOT NEED REHAB. CM ENCOURAGED PT TO PARTICIPATE WITH THERAPY SERVICES WHEN OFFERED, PT STATES HE GETS UP OUT OF BED 30 TIMES PER DAY WITH DIARREAH AND DOES NOT THINK HE WILL NEED ANY REHAB SERVICES. PT STATES TO GET HIM BETTER FIRST AND THEN TALK TO HIM. PT REPORTS NOT NEEDING REHAB SERVICES AT THIS TIME, PLANS TO GO HOME WITH SPOUSE, DENIES DISCHARGE NEEDS AT THIS TIME. CM TO FOLLOW AND ASSIST IF NEEDED. Charge Machine Operator: Irvin Diamond DCPIA - Discharge Planning Initial Assessment Updated by [email or web address]: Irvin Diamond on 02/26/19 9:18 am * Is the patient Alert and Oriented? Yes * How many steps to enter\exit or inside your home? NONE * PCP DR. ELENA VINELAND * Pharmacy [facility] * Preadmission Environment Home with Family * ADLs Independent * Equipment Rolling Walker * Other Equipment WALKER WITH 4 WHEELS, SEAT AND BRAKES PROVIDER - [facility] * List name and contact numbers for known caregivers / representatives who currently or will assist patient after discharge: SANTOS YOO, SPOUSE, * Verbal permission to speak to the caregivers and representatives has been obtained from the patient. N/A * Community resources currently utilized None * Please name any agencies selected above. NONE * Additional services required to return to the preadmission environment? No * Can the patient safely return to the preadmission environment? Yes * Has this patient been hospitalized within the prior 30 days at any hospital? No Coverage Notice Reviewer: [id number] - Irvin Diamond Notice Issued Date-Time: 03/05/2019 14:25 Notice Type: IM Discharge Notice Notice Delivered To: Patient Relationship to Patient: Package Dyeing Machine Operator Name: Delivery Method: HAND - Hand Delivered Bambi Days: Prior Verbal Notification: Recipient Understood Notice: Yes Recipient Signature: Yes Med Rec Note Co-signed by Attending: Coverage Notice Comment: Last DP export: 02/26/19 8:28 am Patient Name: JESSA YOO Page [id number] at 1439 All edits/amendments must be made on the electronic document DICTATION DATE: 03/05/191437 SOCIAL INSURANCE SPECIALIST: CHRISTOPHER 03/05/191437 RPT#: [id number] MS DATE: STATUS: ADM IN [facility] [address] [place] [address] END OF REPORT
--- NOTE | 2019-03-05 15:05 | MORECARE ---
CASE MANAGEMENT DISCHARGE SUMMARY PATIENT: JESSA YOO UNIT: [id number] ADM DATE: 02/23/19 AGE: 79 : 38 SEX: M ROOM/BED: D.2101 AUTHOR: MK NOEL PHYSICIAN: REFERRING PHYSICIAN: OPHELIA العلي MD DATE OF SERVICE: 03/05/19 Discharge Plan Patient Name: JESSA [facility]OO [facility] [facility] 1940 Planned Disposition: Inpatient Rehab Anticipated Discharge Date: 03/06/19 Discharge Date: Expected LOS: 11 Initial Reviewer: [email or web address] Initial Review Date: 02/23/2019 Generated: 03/05/19 4:04 pm Comments DCP- Discharge Planning Updated by [email or web address]: Irvin Diamond on 03/05/19 2:[address] Patient Name: JESSA YOO Encounter No: [id number] : 1940 Primary Insurance: MEDICARE A & B Anticipated DC Date: 03-06-2019 Planned Disposition: Inpatient Rehab External Planned Provider: [facility] INPATIENT REH[facility] DCP follow-up note: CM SPOKE TO JANELLE OF INPATIENT REHAB, THEY PLAN TO MEET WITH PT TO DISCUSS REHAB PLACEMENT PRIOR TO GOING HOME. CM MET WITH PT IN ROOM WHO TALKED TO SOMEONE ABOUT REHAB TODAY. PT IS IN AGREEMENT WITH DISCHARGE TO INPATIENT REHAB.IMPORTANT MESSAGE FROM MEDICARE PROVIDED AND EXPLAINED. CM WAITING [facility] INPATIENT REHAB ADMISSION DETERMINATION FROM [facility] INPATIENT [facility]. ADELE Espinosa DCP- Discharge Planning Updated by [id number]: Irvin Diamond on 02/26/19 8:[address] Patient Name: JESSA YOO Admission Status: ER Accout number: [id number] Admission Date: 02-23-2019 : 1940 Admission Diagnosis:BRADYCARDIA, UNSPECIFIED Attending: OPHELIA العلي Current LOS: 3 Anticipated DC Date: 02-28-2019 Planned Disposition: Home Primary Insurance: MEDICARE A & B Discharge Planning Comments: CM RECEIVED ORDER FOR INPATIENT REHAB PRESCREENING, MET WITH PT IN ROOM TO DISCUSS DISCHARGE PLANNING AND NEEDS. PT REPORTS LIVING AT HOME INDEPENDENTLY WITH SPOUSE. PT HAS ROLLATOR WALKER THAT HE DOES NOT USE FROM [facility]. PT HAS NO OUTSIDE SERVICES ASSISTING IN THE HOME. CM DISCUSSED AVAILABILITY OF HOME HEALTH, REHAB SERVICES AND MEDICAL EQUIPMENT. PT DENIES DISCHARGE NEEDS, REPORTS HIS WILL PICK HER UP FOR DISCHARGE HOME. CM DISCUSSED INPATIENT REHAB ORDER. PT REPORTS THAT IF THE HOSPITAL DOES IT'S JOB PROPERLY, HE WILL NOT NEED REHAB. CM ENCOURAGED PT TO PARTICIPATE WITH THERAPY SERVICES WHEN OFFERED, PT STATES HE GETS UP OUT OF BED 30 TIMES PER DAY WITH DIARREAH AND DOES NOT THINK HE WILL NEED ANY REHAB SERVICES. PT STATES TO GET HIM BETTER FIRST AND THEN TALK TO HIM. PT REPORTS NOT NEEDING REHAB SERVICES AT THIS TIME, PLANS TO GO HOME WITH SPOUSE, DENIES DISCHARGE NEEDS AT THIS TIME. CM TO FOLLOW AND ASSIST IF NEEDED. Cargo Broker: Irvin Diamond DCPIA - Discharge Planning Initial Assessment Updated by [id number]: Irvin Diamond on 02/26/19 9:18 am * Is the patient Alert and Oriented? Yes * How many steps to enter\exit or inside your home? NONE * PCP DR. ELENA GLEN ROGERS * Pharmacy [facility] * Preadmission Environment Home with Family * ADLs Independent * Equipment Rolling Walker * Other Equipment WALKER WITH 4 WHEELS, SEAT AND BRAKES PROVIDER - [facility] * List name and contact numbers for known caregivers / representatives who currently or will assist patient after discharge: SANTOS YOO, SPOUSE, * Verbal permission to speak to the caregivers and representatives has been obtained from the patient. N/A * Community resources currently utilized None * Please name any agencies selected above. NONE * Additional services required to return to the preadmission environment? No * Can the patient safely return to the preadmission environment? Yes * Has this patient been hospitalized within the prior 30 days at any hospital? No Coverage Notice Reviewer: [id number] - Irvin Diamond Notice Issued Date-Time: 03/05/2019 14:25 Notice Type: IM Discharge Notice Notice Delivered To: Patient Relationship to Patient: Driver Helper Name: Delivery Method: HAND - Hand Delivered Bambi Days: Prior Verbal Notification: Recipient Understood Notice: Yes Recipient Signature: Yes Med Rec Note Co-signed by Attending: Coverage Notice Comment: Last DP export: 03/05/19 1:38 p Patient Name: JESSA YOO Page [phone] at 1505 All edits/amendments must be made on the electronic document DICTATION DATE: 03/05/191503 PREMIUM REPRESENTATIVE: CHRISTOPHER 03/05/191503 RPT#: [id number] DC DATE: STATUS: ADM IN [facility] [address] [place] [address] END OF REPORT
--- NOTE | 2019-03-05 19:20 | NUR ---
REPORT RECIEVED AND ROUNDING COMPLETE. PT LAYING IN BED WATCHIGN T.V. PT NC WITH O2 @ 2.5. PT SHOWING NO S/SX OF DISTRESS. PT STATES NO NEEDS AT THIS TIME. CALL LIGHT WIHTIN REACH AND BED IN LOWEST POSITION.
[2019-03-05 20:00] VITALS: BP 144/82
[2019-03-06] VITALS: BP 133/76
[2019-03-06 04:00] VITALS: BP 137/76
[2019-03-06 05:17] LABS: BASOPHILS 0.5 % (0-2); EOSINOPHILS 2.1 % (0-7); HEMATOCRIT 35.5 % (42.0-54.0); HEMOGLOBIN 11.4 g/dL (13.5-17.5); IMMATURE GRANULOCYTES 0.3 % (0-5); LYMPHOCYTES 14.5 % (15-50); MCH 31.2 pg (26.0-34.0); MCHC 32.1 g/dL (31.0-37.0); MCV 97.3 fL (80.0-100.0); MEAN PLATELET VOLUME 10.8 fL (7.4-10.4); MONOCYTES 16.6 % (2-11); PLATELET COUNT 337 10x3/uL (130-400); RBC 3.65 10x6/uL (4.20-6.10); RDW 16.4 % (11.5-14.5); WBC 14.9 10x3/uL (4.8-10.8)
[2019-03-06 05:36] LABS: ALBUMIN 2.2 g/dL (3.4-5.0); ALKALINE PHOSPHATASE 140 U/L (46-116); ALT (SGPT) 19 U/L (10-68); BILIRUBIN - TOTAL 0.49 mg/dL (0.2-1.3); CALC OSMOLALITY 287 mosm/kg (275-300); CALCIUM 8.5 mg/dL (8.5-10.1); CARBON DIOXIDE 30.1 mmol/L (21.0-32.0); CHLORIDE - SERUM 109 mmol/L (98-107); CREATININE - SERUM 0.9 mg/dL (0.6-1.3); GLUCOSE 126 mg/dL (74-106); POTASSIUM - SERUM 3.8 mmol/L (3.5-5.1); PROTEIN - SERUM 5.3 g/dL (6.4-8.2); SODIUM 143 mmol/L (136-145); UREA NITROGEN 14 mg/dL (7-18); eGFR NON AFRICAN AMERICAN 86 mL/min (90-120)
--- NOTE | 2019-03-06 07:32 | NUR ---
PT AWAKE AND ORIENTED. NO COMPLAINTS/CONCERNS VOICED AT THIS TIME. CL IN REACH, SRX2.
[2019-03-06 07:46] VITALS: BP 140/70
--- NOTE | 2019-03-06 09:55 | NUR ---
I have reviewed this patient and I concur with the Shift Assessment completed by the Licensed Practical Nurse today this shift.
--- NOTE | 2019-03-06 10:32 | NUR ---
PT SLEEPING, WOKE EASILY. NO COMPLAINTS OR CONCERNS. CL IN REACH, SRX2.
[2019-03-06] MEDS ORDERED: BETAPACE 120 M120 MG PO (10:54)
[2019-03-06] MEDS ORDERED: PROTONIX40 MG PO (10:55)
[2019-03-06] MEDS ORDERED: FLAGYL500 MG PO (10:59)
[2019-03-06] MEDS ORDERED: TUMS PO (11:01)
[2019-03-06] MEDS ORDERED: Vancomycin HCl PO (11:01)
[2019-03-06] MEDS ORDERED: FLORAJEN3 CAPS460 MG PO (11:02)
--- NOTE | 2019-03-06 11:19 | MORECARE ---
CASE MANAGEMENT DISCHARGE SUMMARY PATIENT: JESSA YOO UNIT: [id number] ADM DATE: 02/23/19 AGE: 79 : 38 SEX: M ROOM/BED: D.2101 AUTHOR: MK NOEL PHYSICIAN: REFERRING PHYSICIAN: OPHELIA العلي MD DATE OF SERVICE: 03/06/19 Discharge Plan Patient Name: JESSA YOO Facility: [facility]:[place] : 1940 Planned Disposition: Inpatient Rehab Anticipated Discharge Date: 03/06/19 Discharge Date: Expected LOS: 11 Initial Reviewer: [id number] Initial Review Date: 02/23/2019 Generated: 03/06/19 12:19 pm Comments DCP- Discharge Planning Updated by [id number]: Irvin Diamond on 03/06/19 10:[address] Patient Name: JESSA YOO Encounter No: [id number] : 1940 Primary Insurance: MEDICARE A & B Anticipated DC Date: 03-06-2019 Planned Disposition: Inpatient Rehab External Planned Provider: [facility] INPATIENT REHAB DCP follow-up note: CM SPOKE TO [facility] OF INPATIENT REHAB, THEY PLAN TO ACCEPT PT TODAY FOR REHAB. PT NOTIFIED, IN AGREEMENT WITH DISCHARGE TO INPATIENT REHAB. ISAIAS ALDRIDGE NOTIFIED BY PORTER PADILLA. CM RECEIVED DISCHARGE ORDER, CALLED AND LEFT MESSAGE ASKING FOR RETURN CALL FROM [facility] OF INPATIENT REHAB. [facility] INPATIENT REHAB TO CONTACT MED 2 NURSE WITH ROOM NUMBER WHEN READY TO ACCEPT PT AND NURSE REPORT. Irvin Diamond, ADELE FARRELL DCP- Discharge Planning Updated by [id number]: Irvin Diamond on 03/05/19 2:[address] Patient Name: JESSA YOO Encounter No: [id number] : 1940 Primary Insurance: MEDICARE A & B Anticipated DC Date: 03-06-2019 Planned Disposition: Inpatient Rehab External Planned Provider: [facility] INPATIENT REHAB DCP follow-up note: CM SPOKE TO [facility] OF INPATIENT REHAB, THEY PLAN TO MEET WITH PT TO DISCUSS REHAB PLACEMENT PRIOR TO GOING HOME. CM MET WITH PT IN ROOM WHO TALKED TO SOMEONE ABOUT REHAB TODAY. PT IS IN AGREEMENT WITH DISCHARGE TO INPATIENT REHAB.IMPORTANT MESSAGE FROM MEDICARE PROVIDED AND EXPLAINED. CM WAITING [facility] WELL INPATIENT REHAB ADMISSION DETERMINATION FROM [facility] INPATIENT REHAB. Irvin Diamond, CASE MANAGEMENT DCP- Discharge Planning Updated by [id number]: Irvin Diamond on 02/26/19 8:[address] Patient Name: JESSA YOO Admission Status: ER Accout number: [id number] Admission Date: 02-23-2019 : 1940 Admission Diagnosis:BRADYCARDIA, UNSPECIFIED Attending: OPHELIA العلي Current LOS: 3 Anticipated DC Date: 02-28-2019 Planned Disposition: Home Primary Insurance: MEDICARE A & B Discharge Planning Comments: CM RECEIVED ORDER FOR INPATIENT REHAB PRESCREENING, MET WITH PT IN ROOM TO DISCUSS DISCHARGE PLANNING AND NEEDS. PT REPORTS LIVING AT HOME INDEPENDENTLY WITH SPOUSE. PT HAS ROLLATOR WALKER THAT HE DOES NOT USE FROM [facility]. PT HAS NO OUTSIDE SERVICES ASSISTING IN THE HOME. CM DISCUSSED AVAILABILITY OF HOME HEALTH, REHAB SERVICES AND MEDICAL EQUIPMENT. PT DENIES DISCHARGE NEEDS, REPORTS HIS WILL PICK HER UP FOR DISCHARGE HOME. CM DISCUSSED INPATIENT REHAB ORDER. PT REPORTS THAT IF THE HOSPITAL DOES IT'S JOB PROPERLY, HE WILL NOT NEED REHAB. CM ENCOURAGED PT TO PARTICIPATE WITH THERAPY SERVICES WHEN OFFERED, PT STATES HE GETS UP OUT OF BED 30 TIMES PER DAY WITH DIARREAH AND DOES NOT THINK HE WILL NEED ANY REHAB SERVICES. PT STATES TO GET HIM BETTER FIRST AND THEN TALK TO HIM. PT REPORTS NOT NEEDING REHAB SERVICES AT THIS TIME, PLANS TO GO HOME WITH SPOUSE, DENIES DISCHARGE NEEDS AT THIS TIME. CM TO FOLLOW AND ASSIST IF NEEDED. Premises Technician: Irvin Diamond DCPIA - Discharge Planning Initial Assessment Updated by [id number]: Irvin Diamond on 02/26/19 9:18 am * Is the patient Alert and Oriented? Yes * How many steps to enter\exit or inside your home? NONE * PCP RON CAMERON * Pharmacy [facility] * Preadmission Environment Home with Family * ADLs Independent * Equipment Rolling Walker * Other Equipment WALKER WITH 4 WHEELS, SEAT AND BRAKES PROVIDER - [facility] * List name and contact numbers for known caregivers / representatives who currently or will assist patient after discharge: SANTOS YOO, SPOUSE, * Verbal permission to speak to the caregivers and representatives has been obtained from the patient. N/A * Community resources currently utilized None * Please name any agencies selected above. NONE * Additional services required to return to the preadmission environment? No * Can the patient safely return to the preadmission environment? Yes * Has this patient been hospitalized within the prior 30 days at any hospital? No Coverage Notice Reviewer: [id number] - Irvin Zimmerman Notice Issued Date-Time: 03/05/2019 14:25 Notice Type: IM Discharge Notice Notice Delivered To: Patient Relationship to Patient: Court Assistant Name: Delivery Method: HAND - Hand Delivered Bambi Days: Prior Verbal Notification: Recipient Understood Notice: Yes Recipient Signature: Yes Med Rec Note Co-signed by Attending: Coverage Notice Comment: Last DP export: 03/05/19 2:04 p Patient Name: JESSA YOO Page 27153 at 1119 All edits/amendments must be made on the electronic document DICTATION DATE: 03/06/191117 BAGGER AND STOCK HANDLER HELPER: CHRISTOPHER 03/06/191117 RPT#: [id number] DC DATE: STATUS: ADM IN [facility] [address] [place] [address] END OF REPORT
[2019-03-06 11:33] VITALS: BP 132/71
--- NOTE | 2019-03-06 14:29 | NUR ---
DISCHARGE TEACHING PROVIDED AND PAPERS SIGNED. PT VERBALIZED UNDERSTANDING AND DENIES ANY QUESTIONS OR CONCERNS. ALL BELONGINGS COLLECTED AND BAGGED FOR PT. PT NOW LEAVING UNIT FOR INPATIENT REHAB. NO FURTHER NEEDS.
--- NOTE | 2019-03-09 07:43 | MORECARE ---
CASE MANAGEMENT DISCHARGE SUMMARY PATIENT: JESSA YOO UNIT: [id number] ADM DATE: 02/23/19 AGE: 79 : 38 SEX: M ROOM/BED: D.2101 AUTHOR: MK NOEL PHYSICIAN: REFERRING PHYSICIAN: OPHELIA العلي MD DATE OF SERVICE: 03/09/19 Discharge Plan Patient Name: JESSA YOO Facility: [facility]:[place] : 1940 Planned Disposition: Inpatient Rehab Anticipated Discharge Date: 03/06/19 Discharge Date: 03/06/2019 Expected LOS: 11 Initial Reviewer: [id number] Initial Review Date: 02/23/2019 Generated: 03/09/19 8:43 am Comments DCP- Discharge Planning Updated by [id number]: Irvin Diamond on 03/06/19 10:[address] Patient Name: JESSA YOO Encounter No: [id number] : 1940 Primary Insurance: MEDICARE A & B Anticipated DC Date: 03-06-2019 Planned Disposition: Inpatient Rehab External Planned Provider: [facility] INPATIENT REHAB DCP follow-up note: CM SPOKE TO [place] OF INPATIENT REHAB, THEY PLAN TO ACCEPT PT TODAY FOR REHAB. PT NOTIFIED, IN AGREEMENT WITH DISCHARGE TO INPATIENT REHAB. ISAIAS ALDRIDGE NOTIFIED BY PORTER PADILLA. CM RECEIVED DISCHARGE ORDER, CALLED AND LEFT MESSAGE ASKING FOR RETURN CALL FROM [facility] OF INPATIENT REHAB. [facility] INPATIENT REHAB TO CONTACT MED 2 NURSE WITH ROOM NUMBER WHEN READY TO ACCEPT PT AND NURSE REPORT. Irvin Diamond, ADELE MANAGEMENT DCP- Discharge Planning Updated by [id number]: Irvin Diamond on 03/05/19 2:[address] Patient Name: JESSA YOO Encounter No: [id number] : 1940 Primary Insurance: MEDICARE A & B Anticipated DC Date: 03-06-2019 Planned Disposition: Inpatient Rehab External Planned Provider: [facility] INPATIENT REHAB DCP follow-up note: CM SPOKE TO [facility] OF INPATIENT REHAB, THEY PLAN TO MEET WITH PT TO DISCUSS REHAB PLACEMENT PRIOR TO GOING HOME. CM MET WITH PT IN ROOM WHO TALKED TO SOMEONE ABOUT REHAB TODAY. PT IS IN AGREEMENT WITH DISCHARGE TO INPATIENT REHAB.IMPORTANT MESSAGE FROM MEDICARE PROVIDED AND EXPLAINED. CM WAITING MEDICAL STABILITY WELL INPATIENT REHAB ADMISSION DETERMINATION FROM [facility] INPATIENT REHAB. Irvin Diamond, CASE MANAGEMENT DCP- Discharge Planning Updated by [id number]: Irvin Diamond on 02/26/19 8:[address] Patient Name: JESSA YOO Admission Status: ER Accout number: [id number] Admission Date: 02-23-2019 : 1940 Admission Diagnosis:BRADYCARDIA, UNSPECIFIED Attending: OPHELIA العلي Current LOS: 3 Anticipated DC Date: 02-28-2019 Planned Disposition: Home Primary Insurance: MEDICARE A & B Discharge Planning Comments: CM RECEIVED ORDER FOR INPATIENT REHAB PRESCREENING, MET WITH PT IN ROOM TO DISCUSS DISCHARGE PLANNING AND NEEDS. PT REPORTS LIVING AT HOME INDEPENDENTLY WITH SPOUSE. PT HAS ROLLATOR WALKER THAT HE DOES NOT USE FROM [facility]. PT HAS NO OUTSIDE SERVICES ASSISTING IN THE HOME. CM DISCUSSED AVAILABILITY OF HOME HEALTH, REHAB SERVICES AND MEDICAL EQUIPMENT. PT DENIES DISCHARGE NEEDS, REPORTS HIS WILL PICK HER UP FOR DISCHARGE HOME. CM DISCUSSED INPATIENT REHAB ORDER. PT REPORTS THAT IF THE HOSPITAL DOES IT'S JOB PROPERLY, HE WILL NOT NEED REHAB. CM ENCOURAGED PT TO PARTICIPATE WITH THERAPY SERVICES WHEN OFFERED, PT STATES HE GETS UP OUT OF BED 30 TIMES PER DAY WITH DIARREAH AND DOES NOT THINK HE WILL NEED ANY REHAB SERVICES. PT STATES TO GET HIM BETTER FIRST AND THEN TALK TO HIM. PT REPORTS NOT NEEDING REHAB SERVICES AT THIS TIME, PLANS TO GO HOME WITH SPOUSE, DENIES DISCHARGE NEEDS AT THIS TIME. CM TO FOLLOW AND ASSIST IF NEEDED. Chemical Compounder: Irvin Diamond DCPIA - Discharge Planning Initial Assessment Updated by [id number]: Irvin Diamond on 02/26/19 9:18 am * Is the patient Alert and Oriented? Yes * How many steps to enter\exit or inside your home? NONE * PCP DR. ELENA PENFIELD * Pharmacy [facility] * Preadmission Environment Home with Family * ADLs Independent * Equipment Rolling Walker * Other Equipment WALKER WITH 4 WHEELS, SEAT AND BRAKES PROVIDER - [facility] * List name and contact numbers for known caregivers / representatives who currently or will assist patient after discharge: SANTOS YOO, SPOUSE, * Verbal permission to speak to the caregivers and representatives has been obtained from the patient. N/A * Community resources currently utilized None * Please name any agencies selected above. NONE * Additional services required to return to the preadmission environment? No * Can the patient safely return to the preadmission environment? Yes * Has this patient been hospitalized within the prior 30 days at any hospital? No Coverage Notice Reviewer: [id number] Biju Diamond Notice Issued Date-Time: 03/05/2019 14:25 Notice Type: IM Discharge Notice Notice Delivered To: Patient Relationship to Patient: Finisher Screwdown Name: Delivery Method: HAND - Hand Delivered Bambi Days: Prior Verbal Notification: Recipient Understood Notice: Yes Recipient Signature: Yes Med Rec Note Co-signed by Attending: Coverage Notice Comment: Last DP export: 03/06/19 10:19 a Patient Name: JESSA YOO Page [phone] at 0743 All edits/amendments must be made on the electronic document DICTATION DATE: 03/09/1944 QUANTITATIVE EQUITY HEAD: CHRISTOPHER 03/09/19 0742 RPT#: [id number] DC DATE:03/06/19 STATUS: DIS IN [facility] [address] [place] [address] END OF REPORT
== END 2019-03-06 14:49 | DRG 372 ==
LOC: D.ER 15:16 → D.M2 16:29
PROVIDERS: Emergency Medicine; Family Medicine; ADMIT Internal Medicine Nephrology; ATTEND Internal Medicine Nephrology
DX: A04.72 Enterocolitis due to Clostridium difficile, not specified as recurrent (principal); K91.841 Postprocedural hemorrhage of a digestive system organ or structure following other procedure; D62 Acute posthemorrhagic anemia; N17.9 Acute kidney failure, unspecified; F17.213 Nicotine dependence, cigarettes, with withdrawal; I95.9 Hypotension, unspecified; R00.1 Bradycardia, unspecified; T44.7X5A Adverse effect of beta-adrenoreceptor antagonists, initial encounter; E86.0 Dehydration; E78.5 Hyperlipidemia, unspecified; I10 Essential (primary) hypertension; D50.9 Iron deficiency anemia, unspecified; I25.10 Atherosclerotic heart disease of native coronary artery without angina pectoris; J44.9 Chronic obstructive pulmonary disease, unspecified; I48.0 Paroxysmal atrial fibrillation; K76.89 Other specified diseases of liver; Y83.9 Surgical procedure, unspecified as the cause of abnormal reaction of the patient, or of later complication, without mention of misadventure at the time of the procedure; Z86.73 Personal history of transient ischemic attack (TIA), and cerebral infarction without residual deficits; R82.71 Bacteriuria

== ENCOUNTER 2019-03-06 14:41 | Inpatient (IN) | payer MEDICARE, OTHER ==
[~2019-03-06] VITALS: Ht 175.3 cm; Wt 89.4 kg
[~2019-03-06 14:41] MED LIST changes: +FLAGYL500 MG PO; +FLORAJEN3 CAPS460 MG PO; +PROTONIX40 MG PO; +TUMS PO; +Vancomycin HCl PO
[2019-03-06 17:17] VITALS: BP 161/86; BMI 29.1
--- NOTE | 2019-03-06 19:15 | NUR ---
PT IS RESTING IN BED WITH EYES OPEN. ALERT AND ORIENTED X 3. DENIES ACUTE DISCOMFORT AT THIS TIME. NO NEEDS VOICED. PT ABLE TO SERVICES DELIVERY DRIVER HIS WATER GLASS WITH HIS LEFT HAND, BUT HAS NO DEBUG TECHNICIAN WITH HIS RIGHT. SR'S ARE UP X 3 IN BED. CALL LIGHT AND BEDSIDE TABLE ARE WITHIN EASY REACH.
[2019-03-06 20:06] VITALS: BP 161/86
--- NOTE | 2019-03-06 21:36 | NUR ---
PT IS RESTING QUIETLY IN BED WITH EYES CLOSED. RESPS ARE EVEN AND UNLABORED. NO ACUTE DISTRESS NOTED.
--- NOTE | 2019-03-07 00:01 | NUR ---
RESTING IN BED WITH EYES CLOSED.
--- NOTE | 2019-03-07 01:27 | NUR ---
RESTING IN BED WITH EYES CLOSED AND RESPIRATIONS UNLABORED. NO DISTRESS NOTED.
--- NOTE | 2019-03-07 05:11 | NUR ---
PT RESTING IN BED WITH EYES CLOSED. NO ACUTE DISTRESS NOTED.
[2019-03-07 07:09] LABS: CALC OSMOLALITY 287 mosm/kg (275-300); CALCIUM 8.5 mg/dL (8.5-10.1); CARBON DIOXIDE 31.4 mmol/L (21.0-32.0); CHLORIDE - SERUM 108 mmol/L (98-107); GLUCOSE 101 mg/dL (74-106); POTASSIUM - SERUM 3.7 mmol/L (3.5-5.1); SODIUM 144 mmol/L (136-145); UREA NITROGEN 15 mg/dL (7-18); eGFR NON AFRICAN AMERICAN 76 mL/min (90-120)
[2019-03-07 07:39] LABS: BASOPHILS 0.5 % (0-2); EOSINOPHILS 2.1 % (0-7); HEMATOCRIT 37.2 % (42.0-54.0); HEMOGLOBIN 11.9 g/dL (13.5-17.5); IMMATURE GRANULOCYTES 0.3 % (0-5); LYMPHOCYTES 16.6 % (15-50); MCH 31.1 pg (26.0-34.0); MCV 97.1 fL (80.0-100.0); MEAN PLATELET VOLUME 11.1 fL (7.4-10.4); MONOCYTES 15.4 % (2-11); NEUTROPHILS 65.1 % (40-80); PLATELET COUNT 359 10x3/uL (130-400); RBC 3.83 10x6/uL (4.20-6.10); RDW 16.2 % (11.5-14.5); WBC 14.8 10x3/uL (4.8-10.8)
[2019-03-07 08:00] VITALS: BP 144/84
--- NOTE | 2019-03-07 08:00 | NUR ---
SHIFT ASSMT COMPLETED.UP OOB AND TAKEN TO BATHROOM.CL IN REACH.BREAKFAST GIVEN.
[2019-03-07 10:36] VITALS: BMI 29.1
--- NOTE | 2019-03-07 12:00 | NUR ---
EATING LUNCH.CL IN REACH.
--- NOTE | 2019-03-07 16:00 | NUR ---
RESTING QUIETLY.CL IN REACH.
--- NOTE | 2019-03-07 22:17 | NUR ---
THE PATIENT WAS LYING IN BED AND WATCHING TELEVISION WHEN STAFF ENTERED HIS ROOM. BED IS IN THE LOW POSITION WITH SIDERAILS X2 CALL LIGHT WITHIN REACH. THE PATIENT DEMONSTRATES APPROPRIATE USE OF A CALL LIGHT. THE PATIENT APPEARS COMFORTABLE WITH NO QUESTIONS OR CONCERNS AT THIS TIME.
--- NOTE | 2019-03-08 02:27 | NUR ---
THE PATIENT APPEARS TO BE SLEEPING. BED IS IN THE LOW POSITION WITH SIDERAILS X2 AND CALL LIGHT WITHIN REACH. THE PATIENT APPEARS COMFORTABLE.
[2019-03-08 08:00] VITALS: BP 162/87
--- NOTE | 2019-03-08 08:00 | NUR ---
SHIFT ASSMT COMPLETED.EATING BREAKFAST.CL IN REACH.
--- NOTE | 2019-03-08 12:00 | NUR ---
EATING LUNCH.DENIES NEEDS.
--- NOTE | 2019-03-08 19:44 | NUR ---
PT IS RESTING IN BED WATCHING TV. ALERT AND ORIENTED X 3. DENIES ACUTE PAIN OR DISCOMFORT AT THIS TIME. NO NEEDS VOICED. LUNG SOUNDS ARE COURSE WITH EXP. WHEEZING. NO SOB NOTED. POOR ROM NOTED IN RIGHT HAND. SR'S ARE UP X 3 IN BED. CALL LIGHT AND BEDSIDE TABLE ARE WITHIN EASY REACH.
[2019-03-08 20:00] VITALS: BP 137/79
[2019-03-08 21:37] VITALS: BP 137/79
--- NOTE | 2019-03-08 22:45 | NUR ---
RESTING IN BED WITH EYES CLOSED.
--- NOTE | 2019-03-09 00:35 | NUR ---
RESTING IN BED WITH EYES CLOSED AND RESPIRATIONS UNLABORED. NO DISTRESS NOTED. CALL LIGHT IN REACH.
--- NOTE | 2019-03-09 06:16 | NUR ---
PT ASSISTED TO THE BATHROOM WITH MOD ASSIST. NO FURTHER NEEDS VOICED.
[2019-03-09 07:06] LABS: BASOPHILS 0.7 % (0-2); EOSINOPHILS 1.8 % (0-7); HEMATOCRIT 37.5 % (42.0-54.0); IMMATURE GRANULOCYTES 0.2 % (0-5); LYMPHOCYTES 20.9 % (15-50); MCV 96.9 fL (80.0-100.0); MONOCYTES 12.2 % (2-11); NEUTROPHILS 64.2 % (40-80); PLATELET COUNT 334 10x3/uL (130-400); RBC 3.87 10x6/uL (4.20-6.10); RDW 16.5 % (11.5-14.5); WBC 13.6 10x3/uL (4.8-10.8)
[2019-03-09 07:15] LABS: ALBUMIN 2.2 g/dL (3.4-5.0); ALKALINE PHOSPHATASE 171 U/L (46-116); ALT (SGPT) 17 U/L (10-68); BILIRUBIN - TOTAL 0.62 mg/dL (0.2-1.3); CALC OSMOLALITY 284 mosm/kg (275-300); CALCIUM 8.3 mg/dL (8.5-10.1); CARBON DIOXIDE 34.5 mmol/L (21.0-32.0); CHLORIDE - SERUM 106 mmol/L (98-107); CREATININE - SERUM 0.9 mg/dL (0.6-1.3); GLUCOSE 92 mg/dL (74-106); POTASSIUM - SERUM 3.6 mmol/L (3.5-5.1); PROTEIN - SERUM 5.6 g/dL (6.4-8.2); SODIUM 143 mmol/L (136-145); UREA NITROGEN 12 mg/dL (7-18); eGFR NON AFRICAN AMERICAN 86 mL/min (90-120)
--- NOTE | 2019-03-09 07:25 | NUR ---
CONTACT ISOLATION FOR CDT. ALERT AND ORIENTED. NO DISTRESS NOTED. CL IN REACH.
[2019-03-09 08:06] VITALS: BP 159/87
--- NOTE | 2019-03-09 13:05 | NUR ---
NO CHANGE IN ASSESSMENT. RESTING QUIETLY IN BE WO C/O PAIN. CL IN REACH.
--- NOTE | 2019-03-09 16:40 | NUR ---
NO CHANGE IN ASSESSMENT. NO C\0 PAIN. CL IN REACH.
--- NOTE | 2019-03-09 18:51 | NUR ---
AWAKE AND ALERT RESTING IN BED WITH RESPIRATIONS UNLABORED. RIGHT HAND WEAK. REMAINS IN ISOLATION FOR C-DIFF. STATES HE HASNT HAD ANY LOOSE STOOLS IN 4-5 DAYS. WILL MONITOR. NO NEEDS VOICED. CALL LIGHT IN REACH.
[2019-03-09 19:00] VITALS: BP 144/87
--- NOTE | 2019-03-10 00:23 | NUR ---
RESTING IN BED WITH EYES CLOSED AND RESPIRATIONS UNLABORED. NO DISTRESS NOTED. CALL LIGHT IN REACH.
--- NOTE | 2019-03-10 05:14 | NUR ---
QUIET HOURS. RESTING IN BED WITH NO DISTRESS NOTED. REMAINS ON ISOLATION PRECAUTIONS. CALL LIGHT IN REACH.
[2019-03-10 08:00] VITALS: BP 146/86
--- NOTE | 2019-03-10 09:52 | NUR ---
SITTING IN WC IN ROOM WATCHING TV. STATES HE DOES NOT FEEL GOOD THIS MORNING. CALL LIGHT IN REACH
--- NOTE | 2019-03-10 14:44 | NUR ---
RESTING QUIETLY IN BED. DENIES NEEDS. CALL LIGHT IN REACH
--- NOTE | 2019-03-10 14:52 | NUR ---
PATIENT ADMITTED TO REHAB FROM ACUTE FLOOR. PATIENT PCP IS DR. ELENA . DME AT HOME IS A ROLLATOR. DISCHARGE PLANS ARE FOR PATIENT TO REURN HOME. WILL CONTINUE TO FOLLOW WITH PATIENT.
[2019-03-10 19:01] VITALS: BP 157/79
--- NOTE | 2019-03-10 20:00 | NUR ---
PATIENT RECEIVED SITTING UP IN BED WATCHING TV. PATIENT ASSESSMENT & VITAL SIGNS DONE. PATIENT HAD NO C/O PAIN OR DISTRESS. BED LOW. BEDSIDE TABLE & CALL LGIHT WITHIN REACH. WILL CONTINUE TO MONITOR.
--- NOTE | 2019-03-10 23:40 | NUR ---
PATIENT EYES CLOSED. RESPIRATIONS EVEN. BED LOW. CALL LIGHT WITHIN REACH. WILL CONTINUE TO MMONITOR.
--- NOTE | 2019-03-11 03:43 | NUR ---
PATIENT EYES CLOSED. RESPIRATIONS 18 & EVEN. BED LOW. CALL LIGHT WITHIN REACH. WILL CONTINUE TO MONITOR.
--- NOTE | 2019-03-11 04:44 | NUR ---
I AGREE WITH APPLE PRESS OPERATOR ASSESSMENT
[2019-03-11 07:07] LABS: BASOPHILS 0.6 % (0-2); EOSINOPHILS 1.6 % (0-7); HEMATOCRIT 35.6 % (42.0-54.0); HEMOGLOBIN 11.5 g/dL (13.5-17.5); IMMATURE GRANULOCYTES 0.2 % (0-5); LYMPHOCYTES 20.3 % (15-50); MCH 31.1 pg (26.0-34.0); MCHC 32.3 g/dL (31.0-37.0); MCV 96.2 fL (80.0-100.0); MEAN PLATELET VOLUME 10.8 fL (7.4-10.4); MONOCYTES 14.8 % (2-11); NEUTROPHILS 62.5 % (40-80); PLATELET COUNT 302 10x3/uL (130-400); RDW 16.6 % (11.5-14.5)
[2019-03-11 07:25] LABS: CALC OSMOLALITY 285 mosm/kg (275-300); CARBON DIOXIDE 36.6 mmol/L (21.0-32.0); CHLORIDE - SERUM 105 mmol/L (98-107); CREATININE - SERUM 0.8 mg/dL (0.6-1.3); GLUCOSE 93 mg/dL (74-106); POTASSIUM - SERUM 3.7 mmol/L (3.5-5.1); SODIUM 144 mmol/L (136-145); UREA NITROGEN 10 mg/dL (7-18); eGFR NON AFRICAN AMERICAN > 90 mL/min (90-120)
[2019-03-11 07:45] VITALS: BP 153/82
--- NOTE | 2019-03-11 08:00 | NUR ---
SHIFT ASSMT COMPLETED.LUNGFIELDS SOUND SLIGHTLY BETTER.BREAKFAST GIVEN.
--- NOTE | 2019-03-11 12:00 | NUR ---
EATING LUNCH.DENIES NEEDS.
--- NOTE | 2019-03-11 15:22 | NUR ---
CARE TEAM MEETING: PATIENT IS PROGRESSING IN THERAPY AND WILL BE RA AT NEXT MEETING. WILL CONTINUE TO FOLLOW WITH PATIENT.
[2019-03-11 19:00] VITALS: BP 143/76
--- NOTE | 2019-03-11 20:01 | NUR ---
REST IN BED AND WATCH TV. CALL LIGHT IN REACH.
--- NOTE | 2019-03-12 02:33 | NUR ---
PT IN BED LOW POSITION, EYES CLOSED AROUSES EASILY TO VOICE, BREATHING EVEN AND UNLABORED, NO NEEDS NOTED, FLUIDS AND CALL LIGHT WITHIN REACH.
--- NOTE | 2019-03-12 02:37 | NUR ---
I AGREE WITH THIS SUPERVISOR PRODUCTION MANAGING'S ASSESSMENT.
--- NOTE | 2019-03-12 03:33 | NUR ---
REST QUIETLY IN BED, CALL LIGHT IN REACH.
--- NOTE | 2019-03-12 07:22 | NUR ---
RECEIVED REPORT. LYING IN BED ON RIGHT SIDE EYES CLOSED RESTING. EASILY AROUSED WITH VERBAL STIMULI. CONTINUES ON 2L VIA NC. NO SIGNS OF DISTRESS NOTED. CALL LIGHT WITHIN REACH, FALL PRECAUTIONS IN PLACE. WILL CONTINUE TO MONITOR
[2019-03-12 08:21] VITALS: BP 148/81
--- NOTE | 2019-03-12 13:00 | NUR ---
RESTING QUIETLY IN BED.
--- NOTE | 2019-03-12 13:40 | NUR ---
LYING IN BED EYES CLOSED RESTING. NO SIGNS OF DISTRESS NOTED. CONTINUES ON 2L VIA NC. CALL LIGHT WITHIN REACH, FALL PRECAUTIONS IN PLACE. WILL CONTINUE TO MONITOR
--- NOTE | 2019-03-12 18:08 | NUR ---
SITTING UP ON SIDE OF BED EATING DINNER. DENIES ANY NEEDS OR PAIN. NO SIGNS OF DISTRESS NOTED. CALL LIGHT WITHIN REACH, FALL PRECAUTIONS IN PLACE. WILL CONTINUE TO MONITOR
[2019-03-12 19:00] VITALS: BP 135/80
--- NOTE | 2019-03-12 19:43 | NUR ---
AWAKE AND ALERT. RESTING IN BED. ASSITED TO BATHROOM AND BACK TO BED. NOTED WEAKNESS IN RIGHT HAND. NOTED SHORTNESS OF BREATH WITH EXERTION. O2/2L ON PER NASAL CANNULA. CALL LIGHT IN REACH.
--- NOTE | 2019-03-13 00:04 | NUR ---
ASSISTED TO BATHROOM AND BACK TO BED AGAIN. NO ACUTE DISTRESS NOTED. REMAINS IM CONTACT ISOLATION. CALL LIGHT IN REACH.
--- NOTE | 2019-03-13 05:06 | NUR ---
RESTING IN BED. NO ACUTE CHANGES IN CONDITION THIS SHIFT. RESTING IN BED WITH NO DISTRESS NOTED. CALL LIGHT IN REACH. CONTACT ISOLATION IN PLACE.
[2019-03-13 08:00] VITALS: BP 144/79
--- NOTE | 2019-03-13 08:20 | NUR ---
PT RESTING IN BED WITH EYES OPEN CALL LIGHT IN REACH NO PROBLEMS WILL MONITER
[2019-03-13 09:07] LABS: BASOPHILS 0.8 % (0-2); HEMATOCRIT 34.2 % (42.0-54.0); HEMOGLOBIN 11.2 g/dL (13.5-17.5); IMMATURE GRANULOCYTES 0.3 % (0-5); LYMPHOCYTES 21.8 % (15-50); MCH 31.2 pg (26.0-34.0); MCHC 32.7 g/dL (31.0-37.0); MCV 95.3 fL (80.0-100.0); MONOCYTES 17.7 % (2-11); NEUTROPHILS 57.4 % (40-80); PLATELET COUNT 317 10x3/uL (130-400); RBC 3.59 10x6/uL (4.20-6.10); RDW 16.9 % (11.5-14.5); WBC 11.9 10x3/uL (4.8-10.8)
[2019-03-13 09:24] LABS: CALC OSMOLALITY 284 mosm/kg (275-300); CALCIUM 8.1 mg/dL (8.5-10.1); CARBON DIOXIDE 37.9 mmol/L (21.0-32.0); CHLORIDE - SERUM 104 mmol/L (98-107); CREATININE - SERUM 0.9 mg/dL (0.6-1.3); GLUCOSE 99 mg/dL (74-106); POTASSIUM - SERUM 3.6 mmol/L (3.5-5.1); SODIUM 143 mmol/L (136-145); UREA NITROGEN 13 mg/dL (7-18); eGFR NON AFRICAN AMERICAN 86 mL/min (90-120)
[2019-03-13 12:40] VITALS: Ht 175.3 cm; Wt 89.4 kg
--- NOTE | 2019-03-13 17:59 | NUR ---
PT RESTING IN BED WITH EYES OPEN EATING SUPPER WILL MONITER
[2019-03-13 19:00] VITALS: BP 141/76
--- NOTE | 2019-03-13 19:22 | NUR ---
GREETED PATIENT AND INTRODUCED MYSELF. PATIENT IS LAYING IN SUPINE POSITION WITH HOB AT 30 DEGREES WATCHING TV. DENIES ANY PAIN AT THIS TIME. DENIES ANY FURTHER NEEDS. CALL LIGHT IN REACH.
--- NOTE | 2019-03-14 02:05 | NUR ---
PATIENT AWAKE LAYING IN SUPINE POSITION WATCHING TV. DENIES ANY NEEDS AT THIS TIME. SR UP X2. BED IN LOWEST POSITION. CALL LIGHT IN REACH.
--- NOTE | 2019-03-14 06:01 | NUR ---
PT ASSISTED TO THE BATHROOM WITH CGA. VOIDED WITHOUT DIFFICULTY. NO FURTHER NEEDS VOICED.
--- NOTE | 2019-03-14 07:27 | NUR ---
PATIENT CONTINUES IN CONTACT ISOLATION. REMAINS CONFIDENTAL. RESTING IN BED. CALL LIGHT WITHIN REACH. WILL CONTINUE WITH PLAN OF CARE
[2019-03-14 08:00] VITALS: BP 150/82
--- NOTE | 2019-03-14 09:21 | NUR ---
PATIENT HELPED TO BATHROOM. STAND BY ASST. FROM BED INTO BATHROOM.
--- NOTE | 2019-03-14 12:06 | NUR ---
PATIENT REMAINS IN ROOM. ISOLATION PRECAUSIONS FOLLOWED. NO THERAPY TODAY
[2019-03-14 19:14] VITALS: BP 141/84
--- NOTE | 2019-03-14 19:14 | NUR ---
GREETED PATIENT AND INTRODUCED MYSELF. PATIENT IS LAYING IN BED WATCHING TV. VITAL SIGNS OBTAINED. DENIES ANY NEEDS AT THIS TIME. CALL LIGHT IN REACH.
--- NOTE | 2019-03-14 21:35 | NUR ---
ASSISTED PATIENT TO BATHROOM USING ONE PERSON ASSIST. PATIENT BACK TO BED AND REPOSITIONED FOR COMFORT. CALL LIGHT IN REACH.
--- NOTE | 2019-03-14 23:29 | NUR ---
PATIENT AWAKE LAYING IN SUPINE POSITION WATCHING TV. DENIES ANY NEEDS AT THIS TIME. CALL LIGHT IN REACH.
--- NOTE | 2019-03-15 | NUR ---
ASSISTED PATIENT TO BATHROOM. BACK TO BED AND REPOSITIONED FOR COMFORT. CALL LIGHT IN REACH.
--- NOTE | 2019-03-15 04:34 | NUR ---
PATIENT RESTING QUIETLY WITH EYES CLOSED LAYING IN SUPINE POSITION. HOB AT 20 DEGREES. O2 IN USE AT 2L VIA NC. RESPIRATIONS EVEN. SR UP X 2. BED IN LOWEST POSITION. CALL LIGHT IN REACH
--- NOTE | 2019-03-15 04:58 | NUR ---
ASSISTED PATIENT TO BATHROOM USING ONE PERSON ASSIST. BACK TO BED AND REPOSITIONED IN BED. CALL LIGHT IN REACH.
--- NOTE | 2019-03-15 07:31 | NUR ---
PATIENT REMAINS IN CONTACT ISOLATION. RESTING IN BED. EYES CLOSED. CALL LIGHT WITHIN REACH. WILL CONTINUE WITH PLAN OF CARE
[2019-03-15 08:33] VITALS: BP 146/67
[2019-03-15 08:34] VITALS: BP 146/61
--- NOTE | 2019-03-15 11:30 | NUR ---
PATIENT HELPED INTO THE BATHROOM. VERY SHORT OF BREATH. PATIENT WEARS OXYGEN AT 3L PER N/C.
--- NOTE | 2019-03-15 13:07 | NUR ---
PATIENT HAS SIGNED A CHAIR/BED ALARM WAVIOR. TRANFERS SELF SAFELY FROM CHAIR TO TOILET OR CHAIR TO BED. PATIENT IS ALERT/ORIENT.
--- NOTE | 2019-03-15 14:05 | NUR ---
PATIENT HELPED IN SHOWER BY THIS NURSE. PATIENT ABLE TO WASH SELF. NEEDED HELP WITH SET UP AND DRYING BACK.
--- NOTE | 2019-03-15 16:17 | NUR ---
IN ROOM VISITIN.
--- NOTE | 2019-03-15 21:21 | NUR ---
PATIENT RESTING IN BED AT START OF SHIFT. DENIES PAIN OR DISCOMFORT. ASSISTED WITH FILLING OUT OF MENU. ASSISTED UP TO BATHROOM AND BACK TO BED. PATIENT WAS SHORT OF BREATH AFTER GOING TO BATHROOM BUT REPLACED O2 AND GOT HIM COMFORTABLE IN BED AND HE SAID HE WAS OK.
[2019-03-15 21:41] VITALS: BP 131/79
[2019-03-16 06:58] LABS: BASOPHILS 0.5 % (0-2); EOSINOPHILS 1.8 % (0-7); HEMATOCRIT 36.2 % (42.0-54.0); HEMOGLOBIN 11.7 g/dL (13.5-17.5); IMMATURE GRANULOCYTES 0.2 % (0-5); LYMPHOCYTES 22.6 % (15-50); MCH 31.3 pg (26.0-34.0); MCHC 32.3 g/dL (31.0-37.0); MCV 96.8 fL (80.0-100.0); MEAN PLATELET VOLUME 11.6 fL (7.4-10.4); MONOCYTES 19.1 % (2-11); NEUTROPHILS 55.8 % (40-80); PLATELET COUNT 355 10x3/uL (130-400); RBC 3.74 10x6/uL (4.20-6.10); RDW 17.5 % (11.5-14.5); WBC 13.1 10x3/uL (4.8-10.8)
[2019-03-16 07:31] LABS: CALC OSMOLALITY 280 mosm/kg (275-300); CALCIUM 8.6 mg/dL (8.5-10.1); CARBON DIOXIDE 37.4 mmol/L (21.0-32.0); CHLORIDE - SERUM 104 mmol/L (98-107); CREATININE - SERUM 0.9 mg/dL (0.6-1.3); GLUCOSE 97 mg/dL (74-106); POTASSIUM - SERUM 4.2 mmol/L (3.5-5.1); SODIUM 141 mmol/L (136-145); UREA NITROGEN 13 mg/dL (7-18); eGFR NON AFRICAN AMERICAN 86 mL/min (90-120)
[2019-03-16 08:00] VITALS: BP 145/85
--- NOTE | 2019-03-16 09:25 | NUR ---
PT AM MEDS ADMINISTERED. PT DENIES NEEDS. WCTM.
[2019-03-16 19:00] VITALS: BP 138/79
--- NOTE | 2019-03-16 20:09 | NUR ---
AWAKE AND ALERT. RESPIRATIONS UNLABORED. CONTINUES ISOLATION RELATED TO C-DIFF. NO ACUTE DISTRESS NOTED. CALL LIGHT IN REACH.
--- NOTE | 2019-03-17 02:12 | NUR ---
RESTING IN BED WITH EYES CLOSED AND RESPIRATIONS UNABORED. NO DISTRESS NOTED. REMAINS IN CONTACT ISOLATION.
--- NOTE | 2019-03-17 05:28 | NUR ---
QUIET HOURS. NO CHANGE IN CONDITION THIS SHIFT. RESTING IN BED WITH NO DISTRESS NOTED.
--- NOTE | 2019-03-17 07:19 | NUR ---
RESTING, NO DISTRESS NOTED. RESP EVEN AND UNLABORED. CL IN REACH. ENTERIC ISOLATION.
[2019-03-17 08:00] VITALS: BP 153/88
--- NOTE | 2019-03-17 11:54 | NUR ---
SHOWER GIVEN TODAY PER OT.
--- NOTE | 2019-03-17 12:24 | NUR ---
[facility] IS OUT OF VANCOMYCIN PO. REQUESTED FROM PHARMACY X2.
--- NOTE | 2019-03-17 12:30 | NUR ---
Nutrition follow up Pt is on a regular diet with 75% average po intake On MVI Weight 197lb Encouraged good po intake to help optimize progress in therapy RD following
--- NOTE | 2019-03-17 13:46 | NUR ---
RESTING WO C/O PAIN. RESP EVEN AND UNLABORED. CL IN REACH.
--- NOTE | 2019-03-17 16:25 | NUR ---
NO CHANGE IN ASSESSMENT. AT BS. CL IN REACH.
--- NOTE | 2019-03-17 17:16 | NUR ---
CHECKED O2 SAT ON RA. 95 PERCENT AFTER 30 MIN.
[2019-03-17 19:00] VITALS: BP 136/79
--- NOTE | 2019-03-17 20:01 | NUR ---
PATIENT RECEIVED SITTING UP IN BED. ASSESSMENT & VITAL SIGNS DONE. BED LOW. CALL LIGHT WITHIN REACH. WILL CONTINUE TO MONITOR.
--- NOTE | 2019-03-18 02:29 | NUR ---
RESTING IN BED WITH EYES CLOSED AND RESPIRAITONS UNLABORED. NO DISTRESS NOTED. CALL LIGHT IN REACH. REMAINS IN ENTERIC PRECAUTIONS.
--- NOTE | 2019-03-18 07:16 | NUR ---
RESTING WO DISTRESS. RESP EVEN AND UNLABORED. NO C/O PAIN. CL IN REACH.
[2019-03-18 08:00] VITALS: BP 158/92
[2019-03-18 09:15] LABS: BASOPHILS 0.5 % (0-2); HEMATOCRIT 35.5 % (42.0-54.0); HEMOGLOBIN 11.6 g/dL (13.5-17.5); IMMATURE GRANULOCYTES 0.1 % (0-5); LYMPHOCYTES 21.6 % (15-50); MCH 31.3 pg (26.0-34.0); MCHC 32.7 g/dL (31.0-37.0); MCV 95.7 fL (80.0-100.0); MEAN PLATELET VOLUME 10.8 fL (7.4-10.4); MONOCYTES 16.2 % (2-11); NEUTROPHILS 59.6 % (40-80); PLATELET COUNT 340 10x3/uL (130-400); RBC 3.71 10x6/uL (4.20-6.10); RDW 17.3 % (11.5-14.5); WBC 11.3 10x3/uL (4.8-10.8)
[2019-03-18 09:18] LABS: CALC OSMOLALITY 275 mosm/kg (275-300); CALCIUM 9.2 mg/dL (8.5-10.1); CARBON DIOXIDE 34.4 mmol/L (21.0-32.0); CHLORIDE - SERUM 104 mmol/L (98-107); GLUCOSE 98 mg/dL (74-106); POTASSIUM - SERUM 4.4 mmol/L (3.5-5.1); SODIUM 138 mmol/L (136-145); UREA NITROGEN 13 mg/dL (7-18); eGFR NON AFRICAN AMERICAN 76 mL/min (90-120)
--- NOTE | 2019-03-18 10:35 | NUR ---
NO CHANGE IN ASSESSMENT. NO C/O PAIN. CL IN REACH.
--- NOTE | 2019-03-18 10:42 | NUR ---
PARTICIPATING IN THERAPY AT THIS TIME.
--- NOTE | 2019-03-18 13:46 | NUR ---
AT REST ON RA O2 SAT 92-94 PERCENT. AFTER AMBULATING 300FT-91 PERCENT ON RA. DURING SHOWER WITH OT ON RA WAS 97 PERCENT.
--- NOTE | 2019-03-18 16:22 | NUR ---
NO CHANGE IN ASSESSMENT. RESTING AT THIS TIME. RESP EVEN AND UNLABORED. CL IN REACH.
[2019-03-18 19:00] VITALS: BP 147/83
--- NOTE | 2019-03-18 19:48 | NUR ---
PATIENT RECEIVED SITTING UP IN BED. CONTACT ISOLATION PROTOCOL IN PLACE. ASSESSMENT & VITAL SIGNS DONE. NO C/O PAIN OR DISTRESS. BED LOW. ALARM ON. CALL LIGHT & TABLE WITHIN REACH. WILL CONTINUE TO MONITOR.
--- NOTE | 2019-03-19 00:07 | NUR ---
PATIENT EYES CLOSED. RESPIRATIONS 18 & EVEN. BED LOW. CALL LIGHT & TABLE WITHIN REACH. WILL CONTINUE TO MONITOR.
--- NOTE | 2019-03-19 03:06 | NUR ---
RESTING IN BED WITH EYES CLOSED AND RESPIRATIONS UNLABORED. REMAINS IN ENTERIC PRECAUTIONS. NO DISTRESS NOTED. CALL LIGHT IN REACH.
[2019-03-19 08:00] VITALS: BP 167/94
--- NOTE | 2019-03-19 08:36 | NUR ---
PT RESTING IN BED WITH EYES OPEN CALL LIGHT IN REACH NO PROBLEMS WILL MONITER
--- NOTE | 2019-03-19 12:15 | NUR ---
PATIENT DISCHARGING HOME TODAY WITH SPOUSE. [facility] WILL PROVIDE THEREAP[facility]. NO NEW DME NEEDED AT THIS TIME. DR. ELENA 04/02/19 3:30, DR. CATALAN 04/02/19 @ 9:15. PATIENT CHOICE FORM AND [facility] FORMS SIGNED, COPY GIVEN TO PATIENT AND FILED IN CHART. DISCHARGE INSTRUCTIONS WITH FIM DATA FAXED TO PCP, [facility] AND REVIEWED WITH PATIENT AND SPOUSE.
--- NOTE | 2019-03-19 13:15 | NUR ---
PT DISCHARGED TO HOME VIA WHEELCHAIR WITH MEDS CALLED IN TO [facility]. DISCHARGE SUMMARY AND MEDS REVIEWED WITH PT NO QUESTIONS OR CONCERNS
--- NOTE | 2019-03-20 11:31 | RHP ---
PATIENT: JESSA YOO MEDICAL RECORD: [id number] ACCOUNT: [id number] LOCATION:[facility] [id number] : 36 ADMISSION DATE: 03/06/19 REHABILITATION HISTORY AND PHYSICAL EXAMINATION POST ADMISSION PHYSICIAN EXAMINATION DATE OF ADMISSION: 03/06/2019. ADMITTING DIAGNOSES: Under neurological conditions of disuse myopathy, complications from hematoma in the gallbladder fossa and around the liver, status post a laparoscopic cholecystectomy. 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 He had a hematoma in the medial aspect of the liver that tracked from the vascular clips in the gallbladder fossa all the way down. He had acute dehydration, bilateral pleural effusions, leukocytosis, bradycardia, hypertension, fatigue, and weakness. He fell at home on discharge. He has a history of hypertension, hyperlipidemia, coronary artery disease, AFib, CVA, chronic diarrhea, and chronic electrolyte problems. He presented to the ED on 02/23/2019 with complaints of having weakness since being discharged home. He reports that he had had a gallbladder removal 5 days prior to this by Dr. Stokes. He had a significant drop in his H&H from discharge. His hematocrit went from 41-25. He had an elevated BUN and creatinine. He was bradycardic. A CT of his abdomen and pelvis showed a hematoma on the medial aspect of the liver that tracked from the vascular clips in the gallbladder fossa. There was also a small amount of fluid in the perihepatic space and increased density. There was also fluid in the pelvis. There were also some mid inflammatory changes in these areas as well. The patient was thus admitted for telemetry, cardiology consult, and continuation of home medications where appropriate. He is currently mod to max assist due to his prolonged mobility. He has progressive generalized weakness, especially in his lower extremities. He has got a tolerance to PT. He is very fatigued, has limited flexion and extension of his lower extremities. Proximal muscle strength is decreased. He is mod to max assist for ADLs, mod to max assist for sit to stand and bed to chair. He is highly motivated with good family support to regain his strength and return back home. Barriers to his discharge at this time are his readmission in less than a week and need for shelter monitor and a high risk for falls secondary to fatigue and weakness. COMORBIDITIES: Include a positive CDT, leukocytosis. He has got weakness, dyspnea, UTI, bradycardia, anemia, diminished renal clearance, microcytic anemia, COPD, tobacco abuse, and nicotine dependence withdrawals. PAST MEDICAL HISTORY: Significant for CVA, cataracts, AFib, cardiac stents, prostate cancer, acid reflux, knee problems, and tobacco use. PAST SURGICAL HISTORY: Includes knee surgery, cataract surgery, angioplasty, and prostate surgery. ALLERGIES: No known drug allergies. HOME MEDICATIONS: Include vitamin B complex daily. He is on Protonix 40 mg HISTORY AND PHYSICAL [id number] JESSA YOO daily, multivitamin 1 tab daily. He is on Floranex 460 daily. He is on an electrolyte replacement protocol at this time. He is on vancomycin 250 q.i.d., Tums 1000 mg q.6 hours, sotalol 80 mg b.i.d., Flagyl 500 mg t.i.d. He is on Mag-Ox 200 mg b.i.d., Kechi 5/325 one tab q.4 hours p.r.n., and Lipitor 40 mg q.h.s. HABITS: Does have a history of tobacco use. FAMILY HISTORY: Noncontributory. SOCIAL HISTORY: The patient hopes to return back home and get back to his prior level of functioning. REVIEW OF SYSTEMS: GENERAL: Does complain of weakness and fatigue. HEENT: Denies cold, cough, or congestion. CARDIOVASCULAR: Denies chest pain. PHYSICAL EXAMINATION: VITAL SIGNS: Stable, afebrile. GENERAL: An elderly gentleman in no acute distress, alert upon exam. HEENT: Normocephalic and atraumatic. Mucosa moist. NECK: Supple. No lymphadenopathy. LUNGS: Clear in upper caceres. HEART: Regular rate and rhythm. ABDOMEN: Benign. EXTREMITIES: No clubbing, cyanosis or edema. NEUROLOGIC: He does have noted proximal muscle weakness. LABORATORY DATA: White count is 14.8, H&H of 12 and 37, and platelet count was noted to be 359. His sodium is 144, potassium 3.7, BUN and creatinine 15 and 1.0, and blood sugar is noted to be 76. 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 The patient has potential to make improvement. We instituted the following multidisciplinary therapies including but not limited to physical, occupational, respiratory, speech, nutritional services, prosthetics and orthotics. Given his complex medical condition and risks for more complications, rehabilitation services cannot be provided at a low level of care such as assisted facility. PLAN: 1. Admit to [facility] for intensive inpatient therapy to include the following disciplines: A. Physical therapy to improve gait, all transfer skills and bed mobility to a modified independent level. B. Occupational therapy to improve activities of daily living to a modified independent level. C. Case management to assist with discharge planning and placement options. D. Nutrition to assist with nutritional needs. E. Rehabilitation nursing to assist in monitoring the patient's underlying medical conditions and to assist with any type of bowel or bladder management. 2. The patient's current medication and medical care will be continued. 3. The patient will be placed on standard fall precautions. HISTORY AND PHYSICAL [id number] JESSA YOO 4. The patient's estimated length of stay is approximately 7-10 days. 5. We will discuss this patient during care team staff meeting this week. TRANSINT:[id number] Voice Confirmation ID: [id number] DOCUMENT ID: [id number] [place] notes whether there has been none or any medical/functional change since admission: - No change since pre-admission screen. [place] attests patient continues to be appropriate for IRF: - Continues to be appropriate. JESSA GARNICA MD at 1131 CC: [id number] DICTATION DATE: 03/07/19 1319 MARKETING ASSISTANT MANAGER: 03/07/19 1339 DIS IN 03/19/19 [place] [id number] [place] [id number]
== END 2019-03-19 14:25 | disposition home health service (06) | DRG 92 ==
LOC: D.REHAB 14:41
PROVIDERS: ADMIT Emergency Medicine; ATTEND Emergency Medicine
DX: G72.89 Other specified myopathies (principal); F17.203 Nicotine dependence unspecified, with withdrawal; N39.0 Urinary tract infection, site not specified; K91.870 Postprocedural hematoma of a digestive system organ or structure following a digestive system procedure; D62 Acute posthemorrhagic anemia; J44.9 Chronic obstructive pulmonary disease, unspecified; D50.9 Iron deficiency anemia, unspecified; R53.1 Weakness; R06.00 Dyspnea, unspecified; I10 Essential (primary) hypertension; D72.829 Elevated white blood cell count, unspecified; E86.0 Dehydration; R53.83 Other fatigue; R00.1 Bradycardia, unspecified; E78.5 Hyperlipidemia, unspecified